=== PATIENT | male | born 1945 | race Caucasian/White ===

== ENCOUNTER 2017-05-11 08:03 | Inpatient (IN) ==
[2017-05-11] MEDS ORDERED: Ondansetron 4 MG/2 ML VIAL IVP ONE (08:11)
[2017-05-11] MEDS ORDERED: *HR* HYDROmorphone (PF) 1 MG/ML SYRINGE IVP ONE (08:11)
--- NOTE | 2017-05-11 08:16 | Emergency Department Note ---
Disposition Clinical Impression: Ureterolithiasis Disposition: Admitted As Inpatient Condition: Fair Time of Disposition: 08:36 Abdominal Pain HPI - General Chief Complaint: ED Abdominal Pain Stated Complaint: kidney stone Time Seen by Provider: 05/11/17 08:06 Source: patient, family - History of Present Illness HPI Narrative: Patient is a 72-year-old male with a past medical history of coronary artery disease on Plavix for stents, hypertension, diabetes, COPD who presents to the ED with chief complaint right flank pain. Patient states he was seen here last night and diagnosed with a 2 mm stone. Pt was d/c home with percocet, flomax and nausea medication. Pt returns here this morning because pain is uncontrolled with Percocet. He denies a prior history of nephrolithiasis but reports his mother had a history He does report he is having difficulty voiding , "I'm only dribbling urine" He denies fevers, vomiting, diarrhea, hematuria, dysuria, chest pain, shortness of breath, motor/sensory deficit, saddle anesthesia, weakness. Does report he is very nausea. Pt Subjective Complaint: flank pain Onset (ago): day(s) Consistency: constant Location: R flank Pain Severity: severe Pain Scale: 9 Quality: sharp, dull Radiation: other (Right groin) Improves with: nothing Worsens with: nothing Context: other (Recently diagnosed with a kidney stone yesterday.) Associated symptoms: Reports: denies other symptoms, nausea. Denies: vomiting, diarrhea, fever, chills, constipation, dysuria, hematemesis, hematochezia, melena, hematuria, anorexia, syncope Treatments prior to arrival: none - Related Data Previous Rx's Medication Instructions Recorded Ciprofloxacin [Cipro] 500 mg PO BID #14 tablet 05/10/17 Ondansetron ODT [Zofran ODT] 4 mg SL Q6HR PRN #14 tab.rapdis 05/10/17 Tamsulosin HCl [Flomax] 0.4 mg PO DAILY #7 cap.er.24h 05/10/17 Allergies Allergy/AdvReac Type Severity Reaction Status Date / Time No Known Allergies Allergy Verified 05/11/17 08:04 All systems ED: reviewed and negative except as stated. Review of Systems: As Per HPI Constitutional: Denies: fever, chills, weakness Cardiovascular: Denies: chest pain, palpitations, dyspnea on exertion, orthopnea , syncope Respiratory: Denies: cough, dyspnea, wheezes Gastrointestinal: Reports: nausea. Denies: abdominal pain, vomiting, diarrhea, constipation, hematemesis, melena, hematochezia Genitourinary: Denies: urgency, dysuria, frequency, hematuria, discharge, testicular pain Musculoskeletal: Reports: back pain (Right flank pain) Integumentary: Denies: rash Neurological: Denies: weakness, numbness, paresthesias Abdominal Pain PMH - Past Medical History Medical history: Reports: coronary artery disease, CVA, diabetes, hypertension, myocardial infarction Male Surgical History: Reports: angioplasty/stent, appendectomy, orthopedic, other, other - Social History Smoking status: Current every day smoker Alcohol use: Reports: none Drug use: Reports: none Physical Exam - General Limitations: no limitations General appearance: alert, in no apparent distress - Head Head exam: atraumatic, normocephalic, normal inspection - Eye Eye exam: Present: normal appearance - ENT ENT exam: mucous membranes moist - Neck Neck exam: Present: normal inspection, full ROM - Chest Chest inspection: Present: symmetric chest wall rise - Respiratory Respiratory exam: Present: normal lung sounds bilaterally - Cardiovascular Cardiovascular exam: Present: regular rate, normal rhythm, normal heart sounds - Abdominal Exam Abdominal exam: Present: soft, Non-Tender, normal bowel sounds. Absent: rigidity, hyperactive bowel sounds, hypoactive bowel sounds, organomegaly, trauma, incision, psoas sign, obturator sign, Oakes's sign, Rovsing's sign, tenderness at McBurney's Point, ascites, mass - Extremities Exam Extremities exam: Present: normal inspection - Expanded Lower Extremity Exam Gait: observed and normal - Back Exam Back exam: Present: normal inspection, full ROM, CVA tenderness (R). Absent: CVA tenderness (L), muscle spasm, paraspinal tenderness, vertebral tenderness, rashes - Neurological Exam Neurological exam: Present: alert, oriented X3 - Psychiatric Psychiatric exam: Present: normal affect, normal mood - Skin Skin exam: Present: warm, dry, intact, normal color. Absent: rash, cyanosis, diaphoresis Course Course Narrative: Patient is a 72-year-old male with a past medical history of coronary artery disease on Plavix for stents, hypertension, diabetes, COPD who presents to the ED with chief complaint right flank pain. Patient states he was seen here last night and diagnosed with a 2 mm stone. Pt was d/c home with percocet, flomax and nausea medication. Pt returns here this morning because pain is uncontrolled with Percocet. He denies a prior history of nephrolithiasis but reports his mother had a history He does report he is having difficulty voiding , "I'm only dribbling urine" He denies fevers, vomiting, diarrhea, hematuria, dysuria, chest pain, shortness of breath, motor/sensory deficit, saddle anesthesia, weakness. Does report he is very nausea. Reviewed previous labs and CT Previous labs showed the BMP 18.1. Bump in kidney function. Creatinine was 1.34. UA showed large blood. Reviewed CT which shows 2 mm stone distal right ureter at the right UVJ. Mild prominence of the right ureter and right pelviectasis. Mild perinephric stranding and inflammatory change surrounding the right ureter. Diverticulosis. No evidence of acute diverticulitis. Compression deformities T12. Plan to repeat UA and basic labs. We will consult urology for possible admission and pain control. Repeat WBC 19.7 Kidney function has continued to rise. Creatinine 1.41 UA still pending. Patient reports that pain is now controlled with Dilaudid, morphine and Toradol. UA shows large blood and ketones. Urologist paged. Discussed case with the urologist Dr. Wayne who accepted patient. Dr. Wayne discussed with me on the phone that he will flood patient with fluids and pain medication to see if he can pass the stone without further intervention. I did discuss this with patient. Patient is very happy with this treatment plan. Vital Signs Temperature 97.8 F 05/11/17 08:04 Pulse Rate 75 05/11/17 08:04 Respiratory Rate 18 05/11/17 08:04 Blood Pressure 177/95 05/11/17 08:04 O2 Sat by Pulse Oximetry 96 05/11/17 08:04 Temperature 97.8 F 05/11/17 08:04 Pulse Rate 82 05/11/17 09:30 Respiratory Rate 16 05/11/17 09:30 Blood Pressure 142/90 05/11/17 09:30 O2 Sat by Pulse Oximetry 95 05/11/17 09:30 Oxygen Delivery Oxygen Delivery Nasal Cannula Abdominal Pain - Medical Records Medical records reviewed: Yes I reviewed the patient's medical records. - Lab Data Lab results reviewed: Yes I reviewed the patient's lab results. Result diagrams: 05/11/17 08:19 05/11/17 08:19 Lab Results 05/11/17 05/11/17 05/11/17 Range/Units 08:19 08:19 09:22 WBC 19.7 H (4.3-11.1) K/mcL RBC 3.78 L (4.19-5.50) M/mcL Hgb 11.6 L (12.9-16.9) g/dL Hct 36.1 L (37.5-50.1) % MCV 95.5 (83.0-100.0) fL MCH 30.7 (28.0-33.3) pg MCHC 32.1 (31.6-35.5) g/dL RDW 14.4 (11.5-14.5) % Plt Count 289 (140-400) K/mcL MPV 8.5 L (9.4-12.4) fL Immature Gran % 0.6 (0-4) % Seg Neutrophils % 58.6 % Lymphocytes % 34.0 % Monocytes % 5.9 % Eosinophils % 0.7 % Basophils % 0.2 % Neutrophils # 11.6 H (1.6-8.9) K/mcL Lymphocytes # 6.7 H (0.6-4.6) K/mcL Monocytes # 1.2 (0.0-1.3) K/mcL Eosinophils # 0.1 (0.0-0.6) K/mcL Basophils # 0.0 (0.0-0.2) K/mcL Immature Plt Fraction 1.7 (1.1-6.1) % Sodium 137 (136-145) mEq/L Potassium 4.2 (3.5-4.5) mEq/L Chloride 101 (98-109) mEq/L Carbon Dioxide 25 (19-29) mEq/L BUN 23 (8-26) mg/dL Creatinine 1.41 H (0.72-1.25) mg/dL Est GFR ( Amer) > 60 (> 60) Est GFR (Non-Af Amer) 50 L (> 60) BUN/Creatinine Ratio 16 (6-26) Glucose 238 H (70-99) mg/dL Calculated Osmolality 295 (280-300) Calcium 9.0 (8.6-10.8) mg/dL Total Bilirubin < 0.3 (0.2-1.2) mg/dL AST 15 (5-34) Units/L ALT 16 (0-55) Units/L Alkaline Phosphatase 61 (38-126) Units/L Serum Total Protein 7.4 (6.0-8.3) g/dL Albumin 3.9 (3.5-5.0) g/dL Globulin 3.5 (2.4-3.5) g/dL Albumin/Globulin Ratio 1.1 (1.1-2.2) Urine Color Yellow (Yellow) Urine Clarity Clear (Clear) Urine pH 5.5 (5.0-8.0) pH Units Ur Specific [place] 1.028 H (1.010-1.025) Urine Protein Trace (Neg-Trace) mg/dL Urine Glucose (UA) >=1000 H (Normal) mg/dL Urine Ketones Trace H (Negative) mg/dL Urine Blood Large H (Negative) Urine Nitrite Negative (Negative) Urine Bilirubin Negative (Negative) Urine Urobilinogen Normal (Normal) mg/dL Ur Leukocyte Esterase Negative (Negative) Urine Microscopic RBC 50-100 H (0-3) per hpf Urine Microscopic WBC 0-3 (0-3) per hpf Ur Squamous Epith Cells Few (None-Few) per lpf Urine Bacteria Few (None-Few) per hpf Ur Culture Indicated? NO (NO) - Radiology Data Radiology results reviewed: Yes I reviewed the patient's radiology results. Attestation Statement - Attestation Attestation: For this encounter, I have reviewed the PRECISION MACHINIST or PA documentation, treatment plan, and medical decision making; and I have had face to face time with this patient. [id number] time provided Patient continues to have symptoms of renal colic. He was recently seen for similar symptoms and diagnosed with a proximal kidney stone. He appears uncomfortable on exam. We will request urologic consultation versus admission for intractable symptoms and failed outpatient therapy
[2017-05-11 08:25] LABS: Basophils % 0.2 %; Eosinophils # 0.1 K/mcL (0.0-0.6); Eosinophils % 0.7 %; Hematocrit 36.1 % (37.5-50.1); Hemoglobin 11.6 g/dL (12.9-16.9); Immature Granulocytes % 0.6 % (0-4); Immature Platelets 1.7 % (1.1-6.1); Lymphocytes # 6.7 K/mcL (0.6-4.6); Mean Corpuscular HGB Conc 32.1 g/dL (31.6-35.5); Mean Corpuscular Hemoglobin 30.7 pg (28.0-33.3); Mean Corpuscular Volume 95.5 fL (83.0-100.0); Mean Platelet Volume 8.5 fL (9.4-12.4); Monocytes # 1.2 K/mcL (0.0-1.3); Monocytes % 5.9 %; Neutrophils # 11.6 K/mcL (1.6-8.9); Platelet Count 289 K/mcL (140-400); Red Blood Count 3.78 M/mcL (4.19-5.50); Red Cell Distribution Width 14.4 % (11.5-14.5); Segmented Neutrophils % 58.6 %
[2017-05-11] MEDS ORDERED: *HR* Morphine 2 MG/ML SYRINGE IVP ONE (08:38)
[2017-05-11] MEDS ORDERED: Ketorolac 15 MG/ML VIAL IVP ONE (08:39)
[2017-05-11 08:50] LABS: Alanine Aminotransferase 16 Units/L (0-55); Albumin 3.9 g/dL (3.5-5.0); Albumin/Globulin Ratio 1.1 (1.1-2.2); Alkaline Phosphatase 61 Units/L (38-126); Aspartate Amino Transferase 15 Units/L (5-34); BUN/Creatinine Ratio 16 (6-26); Blood Urea Nitrogen 23 mg/dL (8-26); Carbon Dioxide 25 mEq/L (19-29); Chloride 101 mEq/L (98-109); Globulin 3.5 g/dL (2.4-3.5); Glucose 238 mg/dL (70-99); Osmolality,Calculated 295 (280-300); Potassium 4.2 mEq/L (3.5-4.5); Sodium 137 mEq/L (136-145); Total Protein 7.4 g/dL (6.0-8.3); eGFR For African Americans > 60 (> 60); eGFR For Non-African Americans 50 (> 60)
[2017-05-11 08:51] LABS: Bilirubin,Total < 0.3 mg/dL (0.2-1.2)
[2017-05-11 09:33] LABS: Bilirubin,Urine Negative (Negative); Blood,Urine Large (Negative); Clarity,Urine Clear (Clear); Color,Urine Yellow (Yellow); Glucose,Urine (UA) >=1000 mg/dL (Normal); Ketones,Urine Trace mg/dL (Negative); PH,Urine 5.5 pH Units (5.0-8.0); Protein,Urine Trace mg/dL (Neg-Trace); Specific Gravity,Urine 1.028 (1.010-1.025); Urobilinogen,Urine Normal (Normal)
[2017-05-11 09:34] LABS: Leukocyte Esterase,Urine Negative (Negative); Nitrite,Urine Negative (Negative)
[2017-05-11 09:44] LABS: Bacteria,Urine Few per hpf (None-Few); RBC,Urine 50-100 per hpf (0-3); Squamous Epithelial Cell,Urine Few per lpf (None-Few); WBC,Urine 0-3 per hpf (0-3)
[2017-05-11] MEDS ORDERED: 0.9 % Sodium Chloride 1,000 ML IVC ONE (09:44)
[2017-05-11] MEDS ORDERED: *HR* Belladonna Alkaloids/Opium 30 MG RECTAL SUPPOSITORY RC PRN ×2 (10:09→22:35)
[2017-05-11] MEDS ORDERED: *HR* Morphine 2 MG/ML SYRINGE IVP PRN ×2 (10:09→22:35)
[2017-05-11] MEDS ORDERED: Naloxone 0.4 MG/ML INJ IVP PRN ×2 (10:09→22:35)
[2017-05-11] MEDS ORDERED: *HR* OxyCODONE Immed Rel 5 MG TABLET PO PRN ×2 (10:09→22:35)
[2017-05-11] MEDS ORDERED: Hyoscyamine SL 0.125 MG TAB.SUBL SL PRN (10:09)
[2017-05-11] MEDS ORDERED: *HR* Promethazine 25 MG/ML VIAL IVP PRN ×2 (10:09→22:35)
[2017-05-11] MEDS ORDERED: Ondansetron 4 MG/2 ML VIAL IVP PRN ×2 (10:09→22:35)
[2017-05-11] MEDS ORDERED: *HR* Dextrose 50 % in Water (Syg) 50 ML SYRINGE IVP PRN ×2 (10:13→22:35)
[2017-05-11] MEDS ORDERED: D5% in Water 1,000 ML IVC PRN ×2 (10:13→22:35)
[2017-05-11] MEDS ORDERED: Dextrose Gel 15 GM PO PRN ×4 (10:13→22:35)
[2017-05-11] MEDS: *HR* HYDROmorphone (PF) 1 MG/ML SYRINGE IVP PRN ×2 (10:47→15:57)
[2017-05-11] MEDS: Insulin LISPRO 300 UNITS/3 ML VIAL SQ SCH ×2 (12:00→16:24)
--- NOTE | 2017-05-11 13:37 | Urology History & Physical ---
Date of Encounter: 05/11/17 Time of Encounter: 13:34 Assessment and Plan (1) Ureteral stone with hydronephrosis Current Visit: Yes Status: Acute Patient was very comfortable on my evaluation today. No need for urgent surgery. We will give patient the next 24 hours to attempt trial of passage. If unable to pass the stone today or overnight will likely take to the operating room for a stone extraction tomorrow. History of Present Illness Chief complaint: flank pain HPI: Mr. Leon is a 72 year old male pt admitted to the urology service after 2nd ER visit for a 2 mm UVJ stone. States the pain was "terrible "currently pain is well-controlled with a pain level of 1. Describes no fever. No personal history of kidney stones. Positive family history of kidney stones in his mother. Past Med Surg Social Fam HX - Past Medical History Medical history: coronary artery disease, CVA, diabetes, hypertension, myocardial infarction - Social History Smoking Status: Current every day smoker Smokeless Tobacco Status: No Alcohol use: none Drug use: none Medications and Allergies Tamsulosin HCl [Flomax] 0.4 mg PO DAILY #7 cap.er.24h 05/10/17 [Rx] Cholecalciferol (Vitamin D3) [Vitamin D] 1,000 unit PO DAILY 05/11/17 [History] Clopidogrel [Plavix] 75 mg PO DAILY 05/11/17 [History] Gabapentin [Neurontin] 100 mg PO HS 05/11/17 [History] GlipiZIDE [Glipizide ER] 10 mg PO BID 05/11/17 [History] Krill/Om-3/Dha/Epa/Phospho/Ast [Krill Oil 1,000 mg Softgel] 1 cap PO DAILY 05/11 [History] Meclizine [Antivert] 12.5 mg PO TID PRN 05/11/17 [History] Metformin HCl [Glucophage] 1,000 mg PO BID 05/11/17 [History] Metoprolol XL (24 HR) Succ [Toprol XL] 12.5 mg PO BID 05/11/17 [History] OxyCODONE/APAP 10/325 [Percocet 10/325 MG] 1 tab PO QID PRN 05/11/17 [History] Pantoprazole Sodium [Protonix] 40 mg PO DAILY 05/11/17 [History] Pioglitazone HCl [Pioglitazone HCl] 30 mg PO DAILY 05/11/17 [History] 3 Allergy/AdvReac Type Severity Reaction Status Date / Time No Known Allergies Allergy Verified 05/11/17 08:04 Review of Systems - Constitutional no chills, no fever(s), no malaise - EENT Nose, mouth and throat: no dizziness - Cardiovascular no chest pain - Respiratory no cough - Gastrointestinal abdominal pain, no nausea - Genitourinary difficulty urinating, flank pain - Musculoskeletal back pain - Integumentary no erythema - Neurological no confusion - Psychiatric no anxiety - Hematologic/Lymphatic no easy bleeding Exam Initial Vital Signs Temp Pulse Resp BP Pulse Ox 97.8 F 75 18 177/95 96 05/11/17 08:04 05/11/17 08:04 05/11/17 08:04 05/11/17 08:04 05/11/17 08:04 - General physical appearance Present: well developed, no distress - Eyes Present: PERRL - ENT Present: normal nares - Neck Present: no masses - Respiratory Present: normal respiratory effort - Cardiovascular Cardiovascular exam IM: RRR - Integumentary Present: no rash. Absent: no growths, no abnormal pigmentation - Neurologic Present: normal coordination. Absent: disoriented, confused Urology Results - Labs 05/11/17 08:19 05/11/17 08:19 Abnormal lab results WBC 19.7 K/mcL (4.3-11.1) H 05/11/17 08:19 RBC 3.78 M/mcL (4.19-5.50) L 05/11/17 08:19 Hgb 11.6 g/dL (12.9-16.9) L 05/11/17 08:19 Hct 36.1 % (37.5-50.1) L 05/11/17 08:19 MPV 8.5 fL (9.4-12.4) L 05/11/17 08:19 Neutrophils # 11.6 K/mcL (1.6-8.9) H 05/11/17 08:19 Lymphocytes # 6.7 K/mcL (0.6-4.6) H 05/11/17 08:19 Creatinine 1.41 mg/dL (0.72-1.25) H 05/11/17 08:19 Est GFR (Non-Af Amer) 50 (> 60) L 05/11/17 08:19 Glucose 238 mg/dL (70-99) H 05/11/17 08:19 POC Glucose 242 (58-89) H 05/11/17 11:39 Ur Specific [place] 1.028 (1.010-1.025) H 05/11/17 09:22 Urine Glucose (UA) >=1000 mg/dL (Normal) H 05/11/17 09:22 Urine Ketones Trace mg/dL (Negative) H 05/11/17 09:22 Urine Blood Large (Negative) H 05/11/17 09:22 Urine Microscopic RBC 50-100 per hpf (0-3) H 05/11/17 09:22 All other labs normal.
[2017-05-11] MEDS ORDERED: 0.9 % Sodium Chloride 1,000 ML IVC SCH (13:45)
[2017-05-11] MEDS ORDERED: Acetaminophen IV 1,000 MG/100 ML INFUS..BTL IVPB ONE (19:47)
[2017-05-11] MEDS ORDERED: Piperacillin/Tazobactam 3.375 GM in D5% in Water (Mini-Bag+) 100 ML IVPB ONE (20:00)
[2017-05-11] MEDS ORDERED: *HR* Etomidate 40 MG/20 ML VIAL IVP ONE (20:39)
[2017-05-11] MEDS ORDERED: Lidocaine -MPF 2% 2 ML VIAL ONE (20:40)
[2017-05-11] MEDS ORDERED: *HR* FentaNYL (PF) 100 MCG/2 ML VIAL ONE ×2 (20:41→22:11)
[2017-05-11] MEDS ORDERED: Albuterol 2.5 MG/3 ML NEBULIZER ONE (20:45)
[2017-05-11] MEDS ORDERED: Albuterol 2.5 MG/3 ML NEBULIZER IH ONE (20:45)
[2017-05-11] MEDS ORDERED: *HR* Succinylcholine 200 MG/10 ML VIAL IVP ONE (20:56)
[2017-05-11] MEDS ORDERED: *HR* Phenylephrine 10 MG/ML VIAL ONE (20:57)
--- NOTE | 2017-05-11 21:07 | Event Note ---
Date of Encounter: 05/11/17 Time of Encounter: 21:05 called by nursing staff. MUSE score of 6. O2 sats dropped to 87%. respiration rate 26. tachycardic to 120. BP stable. fever 101.2. gave patient dose of zosyn (received rocephin this AM). one gram acetaminophen. proceed to OR tonight for stent placement. will attempt to extract stone bc 2 mm UVJ as this unlikely to result in increased manipulation of this ureter.
--- NOTE | 2017-05-11 21:09 | Operative Note ---
Date of procedure: 05/11/17 Pre-op diagnosis: 2 mm distal right ureteral stone Post-op diagnosis: same Procedure: right ureteroscopic stone extraction right retrograde pyelogram right JJ stent. Anesthesia: GETA Surgeon: Stevo Wayne Estimated blood loss (cc): 0 Specimen: stone Condition: stable Disposition: PACU Procedure in Detail: PROCEDURE IN DETAIL: Patient was taken back to the operating room, positioned supine on the operating table. Anesthesia was applied without complication. They were moved into dorsal lithotomy. Careful attention was maintained to cushion all pressure points for patient's safety. They were prepped and draped in sterile fashion. Time-out was performed with the proper patient and procedure. A 17-Malian rigid cystoscope was inserted into the bladder without difficulty. Systematic examination of bladder revealed no abnormalities. The ureteral orifice was cannulated using a 5-Malian ureteral Catheter and a zip wire was passed. A semi-rigid ureteroscope was carefully inserted into the bladder and guided into the ureteral oriface. Although the ureter was quite edematous I was able to access the ureteral vesicle junction, identified the stone, basket extract with minimal manipulation. All stone in the distal ureter was removed. A 4.8 x 26 ureteral stent was placed over the zip wire under fluoroscopy without complication.
--- NOTE | 2017-05-11 21:11 | Anesthesia Evaluation PreOp ---
Date of Encounter: 05/11/17 Time of Encounter: 21:09 - Past History Planned Operation: Right ureteral stent Cardiac History: PR (multiple PR's - none within the past year), HTN, Hyperlipidemia, Arrhythmia (hx VT), Cardiac Stent (3-4 stents; none within the past one year) Pulmonary History: Smoker, COPD, KIMBERLY Dx (possible) BANQUET LEAD History: Other (hx brain aneurysms; two coiled (per patient, none unrepaired that he knows of)) Other Medical History: Renal (renal stone; anabelle), Diabetes Type II Anesthesia History: No Prior Anesthetic Complications Alcohol Use: none Drug use: none Medications and Allergies Tamsulosin HCl [Flomax] 0.4 mg PO DAILY #7 cap.er.24h 05/10/17 [Rx] Cholecalciferol (Vitamin D3) [Vitamin D] 1,000 unit PO DAILY 05/11/17 [History] Clopidogrel [Plavix] 75 mg PO DAILY 05/11/17 [History] Gabapentin [Neurontin] 100 mg PO HS 05/11/17 [History] GlipiZIDE [Glipizide ER] 10 mg PO BID 05/11/17 [History] Krill/Om-3/Dha/Epa/Phospho/Ast [Krill Oil 1,000 mg Softgel] 1 cap PO DAILY 05/11 [History] Meclizine [Antivert] 12.5 mg PO TID PRN 05/11/17 [History] Metformin HCl [Glucophage] 1,000 mg PO BID 05/11/17 [History] Metoprolol XL (24 HR) Succ [Toprol XL] 12.5 mg PO BID 05/11/17 [History] OxyCODONE/APAP 10/325 [Percocet 10/325 MG] 1 tab PO QID PRN 05/11/17 [History] Pantoprazole Sodium [Protonix] 40 mg PO DAILY 05/11/17 [History] Pioglitazone HCl [Pioglitazone HCl] 30 mg PO DAILY 05/11/17 [History] 3 Allergy/AdvReac Type Severity Reaction Status Date / Time No Known Allergies Allergy Verified 05/11/17 08:04 - Meds/Allergy Pre-op Review Medications Reviewed: Yes Allergies Reviewed: Yes Beta Blockers on Current Med List: Yes (holding due to potential for septic shock) Anesthesia Results - Labs 05/11/17 08:19 05/11/17 08:19 - Imaging EKG: report reviewed, image reviewed (ST) Anesthesia Exam Last Vital Signs Temp 100.0 F H 05/11/17 20:30 Pulse 115 05/11/17 20:30 Resp 18 05/11/17 20:30 BP 135/79 05/11/17 20:30 Pulse Ox 93 05/11/17 20:30 Weight: 81 kg NPO (# of Hours): > 8 hrs - HEENT Pupil (Motor): Pupils equal, EOMI Mallampati: IV Teeth: Missing, Poor dentition - BANQUET LEAD LOC: Oriented BANQUET LEAD Motor: Normal RUE, Normal LUE, Normal RLE, Normal LLE, Normal Face - Cardiac Rhythm: Regular Murmur: None - Pulmonary Breath Sounds: bilateral Clear Respiratory Effort: Symmetrical Anesthesia Assess/Plan ASA Score: 4, E Modified Dunia Scale for Level of Consciousness: Cooperative, oriented, and tranquil Anesthetic Plan: General, Precautions (C-MAC) Monitoring Plan: Standard Monitors Recovery Plan: PACU
[2017-05-11] MEDS ORDERED: Hydrocortisone Sodium Succ 100 MG/2 ML VIAL ONE (21:15)
[2017-05-11] MEDS ORDERED: EPHEDrine 50 MG/ML VIAL ONE (21:16)
--- NOTE | 2017-05-11 21:46 | Internal Med History&Physical ---
Date of Encounter: 05/11/17 Time of Encounter: 21:46 Internal Medicine - H&P: HPI History of present illness: Mr. Leon is a 72 year old male Past Med Surg Social Fam HX - Past Medical History Medical history: arthritis, coronary artery disease, CVA, diabetes, hypertension , myocardial infarction, other - Past Surgical History Surgical History: appendectomy - Social History Smoking Status: Current every day smoker Packs per day: 1 pack Smokeless Tobacco Status: No Alcohol use: none Drug use: none Internal Medicine - H&P: Meds Tamsulosin HCl [Flomax] 0.4 mg PO DAILY #7 cap.er.24h 05/10/17 [Rx] Cholecalciferol (Vitamin D3) [Vitamin D] 1,000 unit PO DAILY 05/11/17 [History] Clopidogrel [Plavix] 75 mg PO DAILY 05/11/17 [History] Gabapentin [Neurontin] 100 mg PO HS 05/11/17 [History] GlipiZIDE [Glipizide ER] 10 mg PO BID 05/11/17 [History] Krill/Om-3/Dha/Epa/Phospho/Ast [Krill Oil 1,000 mg Softgel] 1 cap PO DAILY 05/11 [History] Meclizine [Antivert] 12.5 mg PO TID PRN 05/11/17 [History] Metformin HCl [Glucophage] 1,000 mg PO BID 05/11/17 [History] Metoprolol XL (24 HR) Succ [Toprol XL] 12.5 mg PO BID 05/11/17 [History] OxyCODONE/APAP 10/325 [Percocet 10/325 MG] 1 tab PO QID PRN 05/11/17 [History] Pantoprazole Sodium [Protonix] 40 mg PO DAILY 05/11/17 [History] Pioglitazone HCl [Pioglitazone HCl] 30 mg PO DAILY 05/11/17 [History] 3 Allergy/AdvReac Type Severity Reaction Status Date / Time No Known Allergies Allergy Verified 05/11/17 08:04 All Systems PM: A 10-system review of systems was performed and is negative for pertinent findings except as documented above in the HPI. - Constitutional Vitals: Temp Pulse Resp BP Pulse Ox 100.0 F H 115 18 135/79 93 05/11/17 20:30 05/11/17 20:30 05/11/17 20:30 05/11/17 20:30 05/11/17 20:30 Internal Med - H&P Results - Labs CBC & Chem 7: 05/11/17 08:19 05/11/17 08:19
[2017-05-11] MEDS ORDERED: Ondansetron 4 MG/2 ML VIAL ONE (21:58)
[2017-05-11] MEDS ORDERED: *HR* Midazolam HCl 2 MG/2 ML VIAL ONE (21:58)
--- NOTE | 2017-05-11 22:32 | Anesthesia Evaluation Post Op ---
Date of Encounter: 05/11/17 Time of Encounter: 22:29 - Vital Signs Vital Signs: HR 80 SHIRAZ 89/67 O2 100% T 97.1 - Lungs Lungs: Clear Ascult./Percussion - Airway Airway: Intubated - Cardiovascular Regular Rate, Baseline Rhythm - Mental Status Mental Status: Sedated - Nausea Vomiting Nausea Vomiting: Not Present - Hydration Hydration: NPO - Discharge PostOp Status: Transfer Patient to floor ([facility]. Altered mental status on floor (patient was difficult to arouse at one point). Decision made to keep intubated and placed in ICU for additional monitoring. Patient is at risk for septic shock/urosepsis.)
[2017-05-11] MEDS ORDERED: *HR* HYDROmorphone (PF) 1 MG/ML SYRINGE IVP PRN (22:35)
[2017-05-11] MEDS ORDERED: 0.9 % Sodium Chloride 1,000 ML ONE (22:37)
[2017-05-11] MEDS ORDERED: Lacri-Lube 3.5 GM TUBE BOTH EYES PRN (22:40)
--- NOTE | 2017-05-11 22:56 | Internal Medicine Consult Note ---
<Bc Harikns - Last Filed: 05/11/17 23:11> Date of Encounter: 05/11/17 Time of Encounter: 22:51 - Assessment and Plan (1) Sepsis Current Visit: Yes Status: Acute Assessment and plan: Secondary to UTI and right ureterolithiasis. Patient met sepsis criteria during his stay due to tachycardia, tachypnea, fever, source of infection. Kidney stone has been removed, stent has been placed in the right ureter. Patient has been given Rocephin and Zosyn. Vitals have since improved. Heart rate is down 80s, blood pressure 80s to 90s systolic over 60s. He remains elevated after OR stone removal and stent placement. Immunology/critical care has been consulted for urosepsis and ventilator management Continue to wean ventilator settings as tolerated Continue to monitor blood pressure Continue normal saline at 125 mL per hour, bolus as needed Continue Rocephin and Zosyn Continue Tylenol IV as needed for fever Qualifiers: Sepsis type: sepsis due to unspecified organism Qualified Code(s): A41.9 - Sepsis, unspecified organism (2) UTI (urinary tract infection) Current Visit: Yes Status: Acute Assessment and plan: See above Qualifiers: Urinary tract infection type: site unspecified Hematuria presence: with hematuria Qualified Code(s): N39.0 - Urinary tract infection, site not specified; R31.9 - Hematuria, unspecified (3) Hypotension Current Visit: Yes Status: Acute Assessment and plan: Blood pressure currently stable. Receiving normal saline at 125 mL per hour. See above for management. Qualifiers: Hypotension type: unspecified hypotension type Qualified Code(s): I95.9 - Hypotension, unspecified (4) Ureterolithiasis Current Visit: Yes Status: Acute Assessment and plan: 05/10/17 CT/CT abd pelvis wo no iv no oral IMPRESSION: 2 mm stone distal right ureter at the right UVJ. Mild prominence of the right ureter and right pelviectasis. Mild perinephric stranding and inflammatory change surrounding the right ureter. See above for management (5) DVT prophylaxis Current Visit: Yes Status: Acute Assessment and plan: Heparin 5000 units subcutaneous every 12 hours Internal Medicine - CN: HPI - Data of Consult Patient: new to practice Consult date: 05/11/17 Requesting Physician: Stevo Wayne - Consult Narrative Reason for consult: urosepsis, intubated History of present illness: Mr. Leon is a 72 year old male with past medical history of CAD, previous CVA, previous [place], hypertension, diabetes, COPD. He originally presented to the ED on 05/11/2017 with complaints of right flank pain. He had a recent diagnosis of a 2 mm stone. Previously, the patient was sent home with Percocet, Flomax, antibiotics. However, he returned to the ER due to worsening pain, difficulty voiding urine. Patient was admitted to urology service for further care. Patient's white blood cell count was 19.7, creatinine was 1.41, which is above the patient's usual baseline around 0.9. Urinalysis was positive for large amounts of blood but was nitrite and leukocyte esterase negative at that time. During the patient's stay, he became febrile, tachycardic, tachypneic. There is concern that the patient could be developing urosepsis. The patient was taken to the OR and had stent placement and removal of right UVJ stone by Dr. Wayne. He was transferred to ICU after surgery for further care and monitoring. Patient remains intubated after surgery. Heart rate in 80s, blood pressure 80s over 60s on arrival to the ICU. Past Med Surg Social Fam HX - Past Medical History Medical history: arthritis, coronary artery disease, CVA, diabetes, hypertension , myocardial infarction, other - Past Surgical History Surgical History: appendectomy - Social History Smoking Status: Current every day smoker Packs per day: 1 pack Smokeless Tobacco Status: No Alcohol use: none Drug use: none ROS unobtainable: due to endotracheal tube Internal Medicine - CN: Meds Tamsulosin HCl [Flomax] 0.4 mg PO DAILY #7 cap.er.24h 05/10/17 [Rx] Cholecalciferol (Vitamin D3) [Vitamin D] 1,000 unit PO DAILY 05/11/17 [History] Clopidogrel [Plavix] 75 mg PO DAILY 05/11/17 [History] Gabapentin [Neurontin] 100 mg PO HS 05/11/17 [History] GlipiZIDE [Glipizide ER] 10 mg PO BID 05/11/17 [History] Krill/Om-3/Dha/Epa/Phospho/Ast [Krill Oil 1,000 mg Softgel] 1 cap PO DAILY 05/11 [History] Meclizine [Antivert] 12.5 mg PO TID PRN 05/11/17 [History] Metformin HCl [Glucophage] 1,000 mg PO BID 05/11/17 [History] Metoprolol XL (24 HR) Succ [Toprol XL] 12.5 mg PO BID 05/11/17 [History] OxyCODONE/APAP 10/325 [Percocet 10/325 MG] 1 tab PO QID PRN 05/11/17 [History] Pantoprazole Sodium [Protonix] 40 mg PO DAILY 05/11/17 [History] Pioglitazone HCl [Pioglitazone HCl] 30 mg PO DAILY 05/11/17 [History] 3 Allergy/AdvReac Type Severity Reaction Status Date / Time No Known Allergies Allergy Verified 05/11/17 08:04 Internal Medicine - CN: Exam - Constitutional Vitals: Temp Pulse Resp BP Pulse Ox 100.0 F H 115 19 135/79 100 05/11/17 20:30 05/11/17 20:30 05/11/17 22:19 05/11/17 20:30 05/11/17 22:19 Exam: Intubated and sedated - Head Head exam: Present: atraumatic, normal inspection - Eye Eye exam: Present: PERRL, conjuntiva pink, sclera anicteric - ENT ENT exam: Present: mucous membranes moist Additional comments: ET tube present - Neck Neck exam general surgery: Present: normal inspection, supple, trachea midline - Respiratory Respiratory exam: Absent: rales, rhonchi, wheezes Additional comments: Patient currently intubated. No wheezes, rales, rhonchi on exam. - Cardiovascular Cardiovascular exam IM: Present: RRR, +S1, +S2. Absent: diastolic murmur, systolic murmur - GI/Abdominal GI/Abdominal exam IM: Present: soft. Absent: distended, mass, tenderness, no peritoneal signs - Extremities Exam Extremities exam IM: Present: normal inspection, warm, radial pulses palpable and symmetrical. Absent: cyanotic, pedal edema - Neurological Exam Additional comments: Unable to fully assess due to being intubated and sedated. Pupils equal and reactive. When taken off sedation, purposeful movement in all extremities. - Skin Skin exam IM: Present: dry, intact. Absent: erythema, rash Internal Medicine - CN: Reslt - Labs CBC & Chem 7: 05/11/17 08:19 05/11/17 08:19 Consult Discharge Plan - Plan Referrals: Juventino Lizama DO [Primary Care Provider] - <Olga Lidia Crouch - Last Filed: 05/12/17 02:54> Date of Encounter: 05/12/17 Internal Medicine - CN: HPI - Data of Consult Requesting Physician: Stevo Wayne - Consult Narrative History of present illness: Mr. Leon is a 72 year old male Internal Medicine - CN: Exam - Constitutional Vitals: Temp Pulse Resp BP Pulse Ox 97.5 F L 70 14 88/57 97 05/12/17 00:00 05/12/17 02:00 05/12/17 02:38 05/12/17 02:38 05/12/17 02:38 Internal Medicine - CN: Reslt - Labs CBC & Chem 7: 05/11/17 08:19 05/11/17 08:19 - Impressions Impressions Fluoroscopy 05/11/17 21:43 IMPRESSION: Intraprocedural fluoroscopic spot images as above. See separate procedure report for more information. D/ / Miguel Butler MD / Miguel Butler MD Interpreting Provider: Miguel Butler MD Chest X-Ray 05/11/17 22:47 IMPRESSION: 1. Endotracheal tube terminates 5.2 cm above the zamzam. 2. Enteric tube tip and side-port in the gastric body below the gastroesophageal junction. 3. Low lung volumes with right greater left bibasilar atelectasis. D/ / Miguel Butler MD / Miguel Butler MD Interpreting Provider: Miguel Butler MD - Attending Attestation I have seen and examined pt independently. I have discussed the management plan with Resident Dr. Harkins. I have reviewed his note and agree with the documentation. Pt was admitted for ureter stone and UTI. Had stone removal. Difficult extubation after surgery, need high oxygen condition to maintain SpO2. Meet sepsis criteria. Will continue ventilator supportive treatment. Cont Abx and IVF. Track lactate level.
[2017-05-12] MEDS: Insulin LISPRO 300 UNITS/3 ML VIAL SQ SCH ×4 (00:07→18:01)
[2017-05-12] MEDS: Lacri-Lube 3.5 GM TUBE BOTH EYES SCH ×2 (00:07→03:21)
[2017-05-12] MEDS: 0.9 % Sodium Chloride 1,000 ML IVC SCH ×2 (00:07→06:08)
[2017-05-12 03:16] LABS: Basophils % 0.1 %; Eosinophils % 0.1 %; Hematocrit 32.8 % (37.5-50.1); Hemoglobin 10.4 g/dL (12.9-16.9); Immature Granulocytes % 0.2 % (0-4); Lymphocytes # 5.6 K/mcL (0.6-4.6); Lymphocytes % 38.5 %; Mean Corpuscular HGB Conc 31.7 g/dL (31.6-35.5); Mean Corpuscular Hemoglobin 29.8 pg (28.0-33.3); Mean Platelet Volume 8.5 fL (9.4-12.4); Monocytes # 0.7 K/mcL (0.0-1.3); Monocytes % 4.8 %; Neutrophils # 8.2 K/mcL (1.6-8.9); Platelet Count 201 K/mcL (140-400); Red Blood Count 3.49 M/mcL (4.19-5.50); Red Cell Distribution Width 14.4 % (11.5-14.5); Segmented Neutrophils % 56.3 %
[2017-05-12 03:27] LABS: BUN/Creatinine Ratio 20 (6-26); Blood Urea Nitrogen 23 mg/dL (8-26); Carbon Dioxide 27 mEq/L (19-29); Chloride 105 mEq/L (98-109); Glucose 196 mg/dL (70-99); Osmolality,Calculated 299 (280-300); Potassium 3.8 mEq/L (3.5-4.5); Sodium 140 mEq/L (136-145); eGFR For African Americans > 60 (> 60); eGFR For Non-African Americans > 60 (> 60)
[2017-05-12 03:29] LABS: Calcium 7.6 mg/dL (8.6-10.8)
[2017-05-12 04:43] LABS: ABG Base Excess 2.2 mEq/L (-2.0 to 3.0); ABG HCO3 27.8 mEQ/L (21-27); ABG Oxygen Saturation 96 % (95-98); ABG PCO2 47 mmHg (35-45); ABG PH 7.38 pH Units (7.32-7.45); ABG PO2 80 mmHg (85-104); ABG TCO2 29.2 mEq/L (20-26)
[2017-05-12 04:47] LABS: Blood Gas FiO2 60 %
[2017-05-12] MEDS ORDERED: Calcium Gluconate 1,000 MG in D5% in Water 100 ML IVPB ONE (04:50)
[2017-05-12] MEDS ORDERED: *HR* Heparin 5,000 UNIT/ML VIAL SQ SCH (06:00)
[2017-05-12] MEDS ORDERED: Famotidine 20 MG/2 ML VIAL IVP SCH (06:00)
--- NOTE | 2017-05-12 06:49 | Urology Progress Note ---
Date of Encounter: 05/12/17 Time of Encounter: 06:46 - Assessment and Plan (1) Ureteral stone with hydronephrosis Current Visit: Yes Status: Resolved Assessment and plan: s/p stone extraction and stent. likely uroseptic as he destabilized yesterday evening. stable overnight and hopefully will be extubated this AM. appreciate medicine and CC teams. Progress Note Narrative: intubated in ICU. stable overnight. Objective Initial Vital Signs Temp Pulse Resp BP Pulse Ox 97.8 F 75 18 177/95 96 05/11/17 08:04 05/11/17 08:04 05/11/17 08:04 05/11/17 08:04 05/11/17 08:04 - General physical appearance Present: no distress - Additional Exam eyes open and pointing at ET tube herman with light hematuria - Labs 05/12/17 03:10 05/12/17 03:10 Diabetes panel 05/12/17 Range/Units 03:10 Sodium 140 (136-145) mEq/L Potassium 3.8 (3.5-4.5) mEq/L Chloride 105 (98-109) mEq/L Carbon Dioxide 27 (19-29) mEq/L BUN 23 (8-26) mg/dL Creatinine 1.16 (0.72-1.25) mg/dL Glucose 196 H (70-99) mg/dL Calcium 7.6 L D (8.6-10.8) mg/dL Calcium panel 05/12/17 Range/Units 03:10 Calcium 7.6 L D (8.6-10.8) mg/dL Pituitary panel 05/12/17 Range/Units 03:10 Sodium 140 (136-145) mEq/L Potassium 3.8 (3.5-4.5) mEq/L Chloride 105 (98-109) mEq/L Carbon Dioxide 27 (19-29) mEq/L BUN 23 (8-26) mg/dL Creatinine 1.16 (0.72-1.25) mg/dL Glucose 196 H (70-99) mg/dL Calcium 7.6 L D (8.6-10.8) mg/dL Adrenal panel 05/12/17 Range/Units 03:10 Sodium 140 (136-145) mEq/L Potassium 3.8 (3.5-4.5) mEq/L Chloride 105 (98-109) mEq/L Carbon Dioxide 27 (19-29) mEq/L BUN 23 (8-26) mg/dL Creatinine 1.16 (0.72-1.25) mg/dL Glucose 196 H (70-99) mg/dL Calcium 7.6 L D (8.6-10.8) mg/dL - VTE Documentation of Mechanical Device: Intermittent pneumatic compression device Consult Discharge Plan - Plan Referrals: Juventino Lizama DO [Primary Care Provider] -
[2017-05-12] MEDS ORDERED: Piperacillin/Tazobactam 3.375 GM in D5% in Water (Mini-Bag+) 100 ML IVPB SCH ×2 (08:00→09:00)
[2017-05-12] MEDS ORDERED: Metoprolol XL (24 HR) Succ 25 MG TAB.ER.24H PO SCH (09:00)
[2017-05-12] MEDS ORDERED: Chlorhexidine Rinse 15 ML MOUTHWASH MM SCH (09:00)
[2017-05-12] MEDS ORDERED: *HR* Pioglitazone 30 MG TABLET PO SCH (09:00)
[2017-05-12] MEDS ORDERED: 0.9 % Sodium Chloride 1,000 ML IVC SCH (09:01)
--- NOTE | 2017-05-12 09:07 | Internal Med Progress Note ---
Date of Encounter: 05/12/17 Time of Encounter: 09:06 - Assessment and plan (1) Sepsis Current Visit: Yes Status: Acute Assessment and plan: Pt did meet sepsis criteria with elevated WBC, source of Inf as UTI cont empirical abx Rocephin d/c Zosyn f/u on blood cx and Urine cx Qualifiers: Sepsis type: sepsis due to unspecified organism Qualified Code(s): A41.9 - Sepsis, unspecified organism (2) UTI (urinary tract infection) Current Visit: Yes Status: Acute Qualifiers: Urinary tract infection type: site unspecified Hematuria presence: with hematuria Qualified Code(s): N39.0 - Urinary tract infection, site not specified; R31.9 - Hematuria, unspecified (3) Ureterolithiasis Current Visit: Yes Status: Acute Assessment and plan: s/p stent placement and stone extraction Got extubated today no complications Urology following Richardson cath + (4) CAD (coronary artery disease), [place] coronary artery Current Visit: Yes Status: Chronic Assessment and plan: h/o CAD s/p stents cont home meds - Plavix, Metoprolol Qualifiers: Qualified Code(s): I25.10 - Atherosclerotic heart disease of [place] coronary artery without angina pectoris (5) Tobacco dependence Current Visit: Yes Status: Acute Assessment and plan: counseled to quit He did quit in the past for 17 yrs Encouraged him to quit for good this time placed him on nicotine patch (6) Diabetes mellitus Current Visit: Yes Status: Acute Assessment and plan: stable BS resumed home meds + on ISS Qualifiers: Diabetes mellitus type: type 2 Qualified Code(s): E11.9 - Type 2 diabetes mellitus without complications (7) DVT prophylaxis Current Visit: Yes Status: Acute Assessment and plan: on SQ heparin - Subjective Interval history: Mr. Leon is a 72 year old male with past medical history of CAD, previous CVA, previous [place], hypertension, diabetes, COPD. He originally presented to the ED on 05/11/2017 with complaints of right flank pain. He had a recent diagnosis of a 2 mm stone. Previously, the patient was sent home with Percocet, Flomax, antibiotics. However, he returned to the ER due to worsening pain, difficulty voiding urine. Patient was admitted to urology service for further care. Patient's white blood cell count was 19.7, creatinine was 1.41, which is above the patient's usual baseline around 0.9. Urinalysis was positive for large amounts of blood but was nitrite and leukocyte esterase negative at that time. During the patient's stay, he became febrile, tachycardic, tachypneic. There is concern that the patient could be developing urosepsis. The patient was taken to the OR and had stent placement and removal of right UVJ stone by Dr. Wayne. He was transferred to ICU after surgery for further care and monitoring. Pt just got extubated. He is alert, awake and O x 3. Denied any CP / SOB / Abdominal pain. No nasuea / vomiting. No fever / chills. Still has Richardson + - Constitutional Vitals: Temp Pulse Resp BP Pulse Ox 97.9 F 76 24 111/76 92 05/12/17 07:25 05/12/17 08:00 05/12/17 08:00 05/12/17 08:00 05/12/17 08:00 General appearance: Present: A&O X 3, no acute distress - Head Head exam: Present: atraumatic, normal inspection - Respiratory Respiratory exam: Present: decreased breath sounds, wheezes. Absent: rales, respiratory distress, rhonchi - Cardiovascular Cardiovascular exam: Present: RRR, +S1, +S2. Absent: systolic murmur - GI/Abdominal GI/Abdominal exam: Present: distended, normal bowel sounds, soft. Absent: rebound, rigid, tenderness - Extremities Exam Extremities exam: Absent: calf tenderness, pedal edema, tenderness - Back Exam Back exam: Absent: CVA tenderness (L), CVA tenderness (R) - Psychiatric Psychiatric exam: Present: normal affect, normal mood Internal Medicine: Result - Labs CBC & Chem 7: 05/12/17 03:10 05/12/17 03:10 Labs: Short CBC 05/12/17 Range/Units 03:10 WBC 14.6 H (4.3-11.1) K/mcL Hgb 10.4 L (12.9-16.9) g/dL Hct 32.8 L (37.5-50.1) % Plt Count 201 (140-400) K/mcL Neutrophils # 8.2 (1.6-8.9) K/mcL BMP 05/12/17 03:10 Sodium 140 Potassium 3.8 Chloride 105 Carbon Dioxide 27 BUN 23 Creatinine 1.16 Glucose 196 H Calcium 7.6 L D - ABG Interpretation ABG results: ABG ABG pH 7.38 pH Units (7.32-7.45) 05/12/17 04:18 ABG pCO2 47 mmHg (35-45) H 05/12/17 04:18 ABG pO2 80 mmHg (85-104) L 05/12/17 04:18 ABG O2 Saturation 96 % (95-98) 05/12/17 04:18 - Impressions Impressions Fluoroscopy 05/11/17 21:43 IMPRESSION: Intraprocedural fluoroscopic spot images as above. See separate procedure report for more information. D/ / Miguel Butler MD / Miguel Butler MD Interpreting Provider: Miguel Butler MD Chest X-Ray 05/11/17 22:47 IMPRESSION: 1. Endotracheal tube terminates 5.2 cm above the zamzam. 2. Enteric tube tip and side-port in the gastric body below the gastroesophageal junction. 3. Low lung volumes with right greater left bibasilar atelectasis. D/ / Miguel Butler MD / Miguel Butler MD Interpreting Provider: Miguel Butler MD - VTE Documentation of Mechanical Device: Intermittent pneumatic compression device Consult Discharge Plan - Plan Referrals: Juventino Lizama DO [Primary Care Provider] -
--- NOTE | 2017-05-12 10:32 | Pulmonology Consult Note ---
<Jasson Virgen - Last Filed: 05/12/17 10:02> Date of Encounter: 05/12/17 Time of Encounter: 07:00 Assessment and Plan (1) Sepsis Current Visit: Yes Status: Acute Patient met sepsis criteria. His WBC count currently 14.6<19.7. Source of infection as UTI. Continue with antibiotic Rocephin. f/u on blood cx and urine cx. Monitor with a.m. labs Qualifiers: Sepsis type: sepsis due to unspecified organism Qualified Code(s): A41.9 - Sepsis, unspecified organism (2) Ureterolithiasis Current Visit: Yes Status: Acute post-operative day #1 right ureteroscopic stone extraction, right retrograde pyelogram, right JJ stent placement by Dr. Lorenzo. Patient is extubated today without complications. Patient would like to have herman removed. Spoke with hospitalist and he is ok to have the herman taken out. Herman is discontinued at this time. (3) UTI (urinary tract infection) Current Visit: Yes Status: Acute Continue with Rocephin. Follow-up on blood and urine cultures. Monitor with a.m. labs. Qualifiers: Urinary tract infection type: site unspecified Hematuria presence: with hematuria Qualified Code(s): N39.0 - Urinary tract infection, site not specified; R31.9 - Hematuria, unspecified (4) CAD (coronary artery disease), [place] coronary artery Current Visit: No Status: Chronic history of CAD s/p stents Continue home meds - plavix, metoprolol. Qualifiers: Qualified Code(s): I25.10 - Atherosclerotic heart disease of [place] coronary artery without angina pectoris (5) Tobacco dependence Current Visit: No Status: Acute Continue with nicotine patch and encourage to quit. (6) Diabetes mellitus Current Visit: No Status: Acute blood sugar 181<124 The patient has already resumed home meds and on ISS. Continue to monitor with POC glucose and keep goal at <180 Qualifiers: Diabetes mellitus type: type 2 Qualified Code(s): E11.9 - Type 2 diabetes mellitus without complications (7) DVT prophylaxis Current Visit: Yes Status: Acute History of Present Illness Consult date: 05/12/17 Reason for consult: other (urosepsis) History of present illness: 72 year old male with PMH of CAD, previous CVA, previous ME, hypertension, diabetes, COPD. He presented to ED on 05/11/17 for right flank pain. He was recently diagnosed with a 2mm stone and was sent home with Percocet, Flomax, antibiotics. He returned to ED due to worsening pain with voiding. His WBC went up to 19.7, creating 1.41. Urinalysis positive for blood but nitrite and leukocyte esterase negative. Patient was febrile, tachycardic, tachypneic. There was concern that the patient could be developing urosepsis. Patient had his stent placed and right UVJ stone removed by Dr. Wayne. He is transferred to ICU post-operatively for further care and monitoring. Patient was just extubated today. He is hemodynamically stable. denies CP, shortness of breath, nausea, vomiting. Herman + Past Med Surg Social Fam HX - Past Medical History Medical history: arthritis, coronary artery disease, CVA, diabetes, hypertension , myocardial infarction, other - Past Surgical History Surgical History: appendectomy - Social History Smoking Status: Current every day smoker Packs per day: 1 pack Smokeless Tobacco Status: No Alcohol use: none Drug use: none Medications and Allergies Tamsulosin HCl [Flomax] 0.4 mg PO DAILY #7 cap.er.24h 05/10/17 [Rx] Cholecalciferol (Vitamin D3) [Vitamin D] 1,000 unit PO DAILY 05/11/17 [History] Clopidogrel [Plavix] 75 mg PO DAILY 05/11/17 [History] Gabapentin [Neurontin] 100 mg PO HS 05/11/17 [History] GlipiZIDE [Glipizide ER] 10 mg PO BID 05/11/17 [History] Krill/Om-3/Dha/Epa/Phospho/Ast [Krill Oil 1,000 mg Softgel] 1 cap PO DAILY 05/11 [History] Meclizine [Antivert] 12.5 mg PO TID PRN 05/11/17 [History] Metformin HCl [Glucophage] 1,000 mg PO BID 05/11/17 [History] Metoprolol XL (24 HR) Succ [Toprol XL] 12.5 mg PO BID 05/11/17 [History] OxyCODONE/APAP 10/325 [Percocet 10/325 MG] 1 tab PO QID PRN 05/11/17 [History] Pantoprazole Sodium [Protonix] 40 mg PO DAILY 05/11/17 [History] Pioglitazone HCl [Pioglitazone HCl] 30 mg PO DAILY 05/11/17 [History] 3 Allergy/AdvReac Type Severity Reaction Status Date / Time No Known Allergies Allergy Verified 05/11/17 08:04 All Systems: A 10-system review of systems was performed and is negative for pertinent findings except as documented above in the HPI. - Constitutional Constitutional: as per HPI - Cardiovascular Cardiovascular: as per HPI - Respiratory Respiratory: as per HPI - Gastrointestinal Gastrointestinal: no abdominal pain, no nausea, no vomiting - Genitourinary Genitourinary: no dysuria - Neurological Neurological: no abnormal speech, no memory loss, no numbness, no paresthesias, no syncope, no tingling - Psychiatric Psychiatric: no anxiety - Hematologic/Lymphatic Hematologic/Lymphatic: no easy bleeding, no easy bruising Physical Examination Vital Signs: Vital Signs, Last 4 Hours Temp Pulse Resp BP Pulse Ox 05/12/17 09:00 72 16 108/62 98 05/12/17 08:00 76 24 111/76 92 05/12/17 07:25 97.9 F 80 16 124/83 96 General appearance: no acute distress Eyes: nonicteric ENT: oropharynx moist Neck: supple Effort: normal Inspection: normal Auscultation: bilateral: clear Cardiovascular: regular rate and rhythm Gastrointestinal: normoactive bowel sounds, non-distended Integumentary: normal Extremities: no cyanosis Musculoskeletal: no deformities Gait: normal posture Ventilator Settings Ventilator Settings: Ventilator Settings, Last 8 Hours Ventilator Mode A/C Ventilator Mode A/C Ventilator Mode A/C Ventilator Mode A/C Ventilator Mode A/C Ventilator Mode A/C Ventilator Mode A/C Ventilator Mode A/C Ventilator Tidal Volume 400 Setting Ventilator Tidal Volume 400 Setting Ventilator Tidal Volume 400 Setting Ventilator Tidal Volume 400 Setting Ventilator Tidal Volume 400 Setting Ventilator Tidal Volume 400 Setting Ventilator Tidal Volume 400 Setting Ventilator Tidal Volume 400 Setting Ventilator Respiratory Rate 12 Setting Ventilator Respiratory Rate 12 Setting Ventilator Respiratory Rate 12 Setting Ventilator Respiratory Rate 12 Setting Ventilator Respiratory Rate 12 Setting Ventilator Respiratory Rate 12 Setting Ventilator Respiratory Rate 12 Setting Actual Respiratory Rate 17 Actual Respiratory Rate 19 Actual Respiratory Rate 17 Actual Respiratory Rate 16 Actual Respiratory Rate 16 Actual Respiratory Rate 15 Actual Respiratory Rate 14 Positive End Expiratory 5 Pressure Positive End Expiratory 5 Pressure Positive End Expiratory 5 Pressure Positive End Expiratory 5 Pressure Positive End Expiratory 5 Pressure Positive End Expiratory 5 Pressure Positive End Expiratory 5 Pressure Positive End Expiratory 5 Pressure Peak Inspiratory Airway 11 Pressure Peak Inspiratory Airway 11 Pressure Peak Inspiratory Airway 22 Pressure Peak Inspiratory Airway 20 Pressure Peak Inspiratory Airway 21 Pressure Peak Inspiratory Airway 22 Pressure Peak Inspiratory Airway 20 Pressure Results - Laboratory Findings CBC and BMP: 05/12/17 03:10 05/12/17 03:10 ABG ABG pH 7.38 pH Units (7.32-7.45) 05/12/17 04:18 ABG pCO2 47 mmHg (35-45) H 05/12/17 04:18 ABG pO2 80 mmHg (85-104) L 05/12/17 04:18 ABG O2 Saturation 96 % (95-98) 05/12/17 04:18 Abnormal lab findings: Abnormal lab results WBC 14.6 K/mcL (4.3-11.1) H 05/12/17 03:10 RBC 3.49 M/mcL (4.19-5.50) L 05/12/17 03:10 Hgb 10.4 g/dL (12.9-16.9) L 05/12/17 03:10 Hct 32.8 % (37.5-50.1) L 05/12/17 03:10 MPV 8.5 fL (9.4-12.4) L 05/12/17 03:10 Lymphocytes # 5.6 K/mcL (0.6-4.6) H 05/12/17 03:10 ABG pCO2 47 mmHg (35-45) H 05/12/17 04:18 ABG pO2 80 mmHg (85-104) L 05/12/17 04:18 ABG HCO3 27.8 mEQ/L (21-27) H 05/12/17 04:18 ABG Total CO2 29.2 mEq/L (20-26) H 05/12/17 04:18 Glucose 196 mg/dL (70-99) H 05/12/17 03:10 POC Glucose 181 (58-89) H 05/12/17 05:34 Calcium 7.6 mg/dL (8.6-10.8) L D 05/12/17 03:10 Ionized Calcium 1.02 mmol/L (1.15-1.35) L 05/12/17 05:54 Ur Specific [place] 1.028 (1.010-1.025) H 05/11/17 09:22 Urine Glucose (UA) >=1000 mg/dL (Normal) H 05/11/17 09:22 Urine Ketones Trace mg/dL (Negative) H 05/11/17 09:22 Urine Blood Large (Negative) H 05/11/17 09:22 Urine Microscopic RBC 50-100 per hpf (0-3) H 05/11/17 09:22 - Clinical Findings Intake & Output: Intake & Output 05/11/17 05/12/17 05/12/17 23:59 07:59 15:59 Intake Total 100 / 200 1142 / 1142 120 / 120 Output Total 250 / 250 1335 / 1335 170 / 170 Balance -150 / -50 -193 / -193 -50 / -50 Weight 86.5 kg Consult Discharge Plan - Plan Referrals: Juventino Lizama DO [Primary Care Provider] - <Jalil Almodovar - Last Filed: 05/12/17 14:03> Date of Encounter: 05/12/17 All Systems: A 10-system review of systems was performed and is negative for pertinent findings except as documented above in the HPI. Physical Examination Vital Signs: Vital Signs, Last 4 Hours Temp Pulse Resp BP Pulse Ox 05/12/17 12:00 93 20 141/87 94 05/12/17 11:48 98.0 F 05/12/17 11:00 76 22 152/87 97 Ventilator Settings Ventilator Settings: Ventilator Settings, Last 8 Hours Ventilator Mode A/C Ventilator Mode A/C Ventilator Tidal Volume 400 Setting Ventilator Tidal Volume 400 Setting Ventilator Respiratory Rate 12 Setting Ventilator Respiratory Rate 12 Setting Actual Respiratory Rate 17 Positive End Expiratory 5 Pressure Positive End Expiratory 5 Pressure Peak Inspiratory Airway 11 Pressure Results - Laboratory Findings CBC and BMP: 05/12/17 03:10 05/12/17 03:10 ABG ABG pH 7.38 pH Units (7.32-7.45) 05/12/17 04:18 ABG pCO2 47 mmHg (35-45) H 05/12/17 04:18 ABG pO2 80 mmHg (85-104) L 05/12/17 04:18 ABG O2 Saturation 96 % (95-98) 05/12/17 04:18 Abnormal lab findings: Abnormal lab results WBC 14.6 K/mcL (4.3-11.1) H 05/12/17 03:10 RBC 3.49 M/mcL (4.19-5.50) L 05/12/17 03:10 Hgb 10.4 g/dL (12.9-16.9) L 05/12/17 03:10 Hct 32.8 % (37.5-50.1) L 05/12/17 03:10 MPV 8.5 fL (9.4-12.4) L 05/12/17 03:10 Lymphocytes # 5.6 K/mcL (0.6-4.6) H 05/12/17 03:10 ABG pCO2 47 mmHg (35-45) H 05/12/17 04:18 ABG pO2 80 mmHg (85-104) L 05/12/17 04:18 ABG HCO3 27.8 mEQ/L (21-27) H 05/12/17 04:18 ABG Total CO2 29.2 mEq/L (20-26) H 05/12/17 04:18 Glucose 196 mg/dL (70-99) H 05/12/17 03:10 POC Glucose 112 (58-89) H 05/12/17 11:26 Calcium 7.6 mg/dL (8.6-10.8) L D 05/12/17 03:10 Ionized Calcium 1.02 mmol/L (1.15-1.35) L 05/12/17 05:54 Ur Specific [place] 1.028 (1.010-1.025) H 05/11/17 09:22 Urine Glucose (UA) >=1000 mg/dL (Normal) H 05/11/17 09:22 Urine Ketones Trace mg/dL (Negative) H 05/11/17 09:22 Urine Blood Large (Negative) H 05/11/17 09:22 Urine Microscopic RBC 50-100 per hpf (0-3) H 05/11/17 09:22 - Clinical Findings Intake & Output: Intake & Output 05/11/17 05/12/17 05/12/17 23:59 07:59 15:59 Intake Total 100 / 200 1252 / 1252 1520 / 1520 Output Total 250 / 250 1335 / 1335 880 / 880 Balance -150 / -50 -83 / -83 640 / 640 Weight 86.5 kg - Attending Attestation I examined this patient and my medical decision-making was reviewed with the Resident Physician. I agree with the documented findings, disposition and treatment plan as described except to the extent set forth below. Patient seen and examined. Labs, radiology, chart personally reviewed. Agree with resident's history and physical, assessment, plan with following comments: REHABILITATION SERVICES MANAGER: Patient follows commands, Pulmonary: Acceptable oxygenation and ventilation. I saw this patient this morning when he was on the ventilator and still intubated, patient was doing well and he was fully awake and patient was extubated successfully after that. This was postoperative intubation after he had surgery done. Cardiovascular: stable hemodynamically and discussed with hospitalist that patient is stable to be transferred to the floor. GI: Nutrition per dietary and GI prophylaxis per routine Heme: DVT prophylaxis per routine ID: Continue antibiotics and plan to de-escalation Renal; urine out put and renal funtion reviewed Endorcine: blood glucose is monitored Lines: all lines checked and no evidence of infections Skin: skin care to prevent pressure ulcers per nursing routine care Thank you for the consultation and place call for any questions.
[2017-05-12] MEDS ORDERED: *HR* Morphine 2 MG/ML SYRINGE IVP PRN (10:52)
[2017-05-12] MEDS ORDERED: Naloxone 0.4 MG/ML INJ IVP PRN (10:52)
[2017-05-12] MEDS ORDERED: *HR* OxyCODONE Immed Rel 5 MG TABLET PO PRN (10:52)
[2017-05-12] MEDS ORDERED: Dextrose Gel 15 GM PO PRN ×2 (10:52)
[2017-05-12] MEDS ORDERED: *HR* HYDROmorphone (PF) 1 MG/ML SYRINGE IVP PRN (10:52)
[2017-05-12] MEDS ORDERED: D5% in Water 1,000 ML IVC PRN (10:52)
[2017-05-12] MEDS ORDERED: Ondansetron 4 MG/2 ML VIAL IVP PRN (10:52)
[2017-05-12] MEDS ORDERED: *HR* Dextrose 50 % in Water (Syg) 50 ML SYRINGE IVP PRN (10:52)
[2017-05-12] MEDS ORDERED: *HR* Belladonna Alkaloids/Opium 30 MG RECTAL SUPPOSITORY RC PRN (10:52)
[2017-05-12] MEDS ORDERED: Chloraseptic Spray 177 ML BOTTLE MM PRN (11:03)
[2017-05-12] MEDS: *HR* OxyCODONE/APAP 10/325 TABLET PO PRN ×3 (12:32→22:15)
[2017-05-12] MEDS: *HR* Heparin 5,000 UNIT/ML VIAL SQ SCH (18:03)
[2017-05-12] MEDS ORDERED: Piperacillin/Tazobactam 3.375 GM in D5% in Water (Mini-Bag+) 100 ML IVPB ONE (19:46)
[2017-05-12] MEDS ORDERED: Gabapentin 100 MG CAPSULE PO SCH ×2 (21:00)
[2017-05-12] MEDS: Metoprolol XL (24 HR) Succ 25 MG TAB.ER.24H PO SCH (22:15)
[2017-05-13] MEDS ORDERED: Acetaminophen 325 MG TABLET PO PRN (01:04)
[2017-05-13] MEDS: Insulin LISPRO 300 UNITS/3 ML VIAL SQ SCH (01:19)
[2017-05-13 04:24] LABS: Hematocrit 34.8 % (37.5-50.1); Hemoglobin 11.2 g/dL (12.9-16.9); Mean Corpuscular HGB Conc 32.2 g/dL (31.6-35.5); Mean Corpuscular Hemoglobin 30.7 pg (28.0-33.3); Mean Corpuscular Volume 95.3 fL (83.0-100.0); Mean Platelet Volume 8.9 fL (9.4-12.4); Platelet Count 209 K/mcL (140-400); Red Blood Count 3.65 M/mcL (4.19-5.50); Red Cell Distribution Width 14.5 % (11.5-14.5)
[2017-05-13 04:39] LABS: BUN/Creatinine Ratio 13 (6-26); Blood Urea Nitrogen 13 mg/dL (8-26); Calcium 8.7 mg/dL (8.6-10.8); Carbon Dioxide 32 mEq/L (19-29); Chloride 104 mEq/L (98-109); Glucose 219 mg/dL (70-99); Osmolality,Calculated 303 (280-300); Potassium 3.7 mEq/L (3.5-4.5); Sodium 143 mEq/L (136-145); eGFR For African Americans > 60 (> 60); eGFR For Non-African Americans > 60 (> 60)
[2017-05-13] MEDS: *HR* Heparin 5,000 UNIT/ML VIAL SQ SCH (05:43)
--- NOTE | 2017-05-13 07:04 | Discharge Summary ---
Date of Encounter: 05/13/17 Time of Encounter: 07:00 - Discharge Diagnosis (1) Ureteral stone with hydronephrosis Priority: Primary Status: Resolved - Discharge Medications Prescriptions: Oxycodone HCl/Acetaminophen [Percocet 5-325 mg Tablet] 1 each PO Q4H PRN #15 tablet PRN Reason: Pain Phenazopyridine HCl [Pyridium] 200 mg PO TIDAC #15 tab Sulfamethoxazole/Trimeth DS [Bactrim DS] 1 each PO BID #20 tablet Home Medications: Tamsulosin HCl [Flomax] 0.4 mg PO DAILY #7 cap.er.24h 05/10/17 [Rx] Cholecalciferol (Vitamin D3) [Vitamin D3] 1,000 unit PO DAILY 05/11/17 [History] Clopidogrel [Plavix] 75 mg PO DAILY 05/11/17 [History] Gabapentin [Neurontin] 100 mg PO HS 05/11/17 [History] GlipiZIDE [Glipizide ER] 10 mg PO BID 05/11/17 [History] Krill/Om-3/Dha/Epa/Phospho/Ast [Krill Oil 1,000 mg Softgel] 1 cap PO DAILY 05/11 [History] Meclizine [Antivert] 12.5 mg PO TID PRN 05/11/17 [History] Metformin HCl [Glucophage] 1,000 mg PO BID 05/11/17 [History] Metoprolol XL (24 HR) Succ [Toprol Xl] 12.5 mg PO BID 05/11/17 [History] Pantoprazole Sodium [Protonix] 40 mg PO DAILY 05/11/17 [History] Pioglitazone HCl 30 mg PO DAILY 05/11/17 [History] Oxycodone HCl/Acetaminophen [Percocet 5-325 mg Tablet] 1 each PO Q4H PRN #15 tablet 05/13/17 [Rx] Phenazopyridine HCl [Pyridium] 200 mg PO TIDAC #15 tab 05/13/17 [Rx] Sulfamethoxazole/Trimeth DS [Bactrim DS] 1 each PO BID #20 tablet 05/13/17 [Rx] Allergies/Adverse Reactions: 3 Allergy/AdvReac Type Severity Reaction Status Date / Time No Known Allergies Allergy Verified 05/11/17 08:04 Labs on day of discharge: Labs from last 24 hours 05/13/17 05/13/17 05/13/17 03:56 03:56 00:01 WBC 14.4 H RBC 3.65 L Hgb 11.2 L Hct 34.8 L MCV 95.3 MCH 30.7 MCHC 32.2 RDW 14.5 Plt Count 209 MPV 8.9 L Sodium 143 Potassium 3.7 Chloride 104 Carbon Dioxide 32 H BUN 13 D Creatinine 0.97 Est GFR ( Amer) > 60 Est GFR (Non-Af Amer) > 60 BUN/Creatinine Ratio 13 Glucose 219 H POC Glucose 290 H Calculated Osmolality 303 H Calcium 8.7 05/12/17 05/12/17 17:47 11:26 WBC RBC Hgb Hct MCV MCH MCHC RDW Plt Count MPV Sodium Potassium Chloride Carbon Dioxide BUN Creatinine Est GFR ( Amer) Est GFR (Non-Af Amer) BUN/Creatinine Ratio Glucose POC Glucose 206 H 112 H Calculated Osmolality Calcium - Impressions ITS Impressions Fluoroscopy 05/11/17 21:43 IMPRESSION: Intraprocedural fluoroscopic spot images as above. See separate procedure report for more information. D/ / Miguel Butler MD / Miguel Butler MD Interpreting Provider: Miguel Butler MD Chest X-Ray 05/11/17 22:47 IMPRESSION: 1. Endotracheal tube terminates 5.2 cm above the zamzam. 2. Enteric tube tip and side-port in the gastric body below the gastroesophageal junction. 3. Low lung volumes with right greater left bibasilar atelectasis. D/ / Miguel Butler MD / Miguel Butler MD Interpreting Provider: Miguel Butler MD Date of admission: 05/11/17 21:08 Primary care physician: Juventino Lizama, Discharging clinician: Stevo Wayne Anticipated date of discharge: 05/13/17 - Patient Status Disposition: Home, Self-Care Condition: Good Functional capacity at discharge: independent ambulation Overall status at discharge: patient is progressing back to baseline - Discharge Instructions Follow Up With: Juventino Lizama DO [Primary Care Provider] - Stevo Wayne MD [Partnered Physician] - (1-2 weeks for office cystoscopy stent removal) Additional Instructions: Expect stent discomfort including urgency, frequency, burning on urination, blood in the urine, flank pain during urination. This is normal. Call if fever over 101 that does not respond to ibuprofen or Tylenol. - Diet and Activity Activity: increase activity as tolerated Diet: diabetic diet - Hospital Course Hospital course: Mr. Leon is a 72 year old male status post ureteroscopic stone extraction and stent placement. Concern for urosepsis requiring temporary ICU stay after surgery. Recovered nicely. Vital signs stable. Labs okay except for white blood cell count at 14,000. Patient feels good. Ready for discharge today. - Time Spent with Patient Total time spent providing and/or coordinating discharge services: Less than 30 minutes Exam Initial Vital Signs Temp Pulse Resp BP Pulse Ox 97.8 F 75 18 177/95 96 05/11/17 08:04 05/11/17 08:04 05/11/17 08:04 05/11/17 08:04 05/11/17 08:04 - General physical appearance Present: well developed, no distress - VTE Documentation of Mechanical Device: Intermittent pneumatic compression device
[2017-05-13 07:28] VITALS: BP 152/86
[2017-05-13] MEDS ORDERED: Insulin LISPRO 300 UNITS/3 ML VIAL SQ SCH ×2 (07:30→21:00)
[2017-05-13] MEDS: *HR* OxyCODONE/APAP 10/325 TABLET PO PRN (08:02)
[2017-05-13] MEDS: Metoprolol XL (24 HR) Succ 25 MG TAB.ER.24H PO SCH (08:03)
--- NOTE | 2017-05-13 14:45 | Internal Med Progress Note ---
Date of Encounter: 05/13/17 Time of Encounter: 08:30 - Assessment and plan (1) Sepsis Status: Acute Assessment and plan: Sepsis secondary to UTI present on admission - now improved Continue Bactrim prescribed by Dr. Wayne Qualifiers: Sepsis type: sepsis due to unspecified organism Qualified Code(s): A41.9 - Sepsis, unspecified organism (2) Diabetes mellitus Status: Acute Assessment and plan: Continue home meds Qualifiers: Diabetes mellitus type: type 2 Qualified Code(s): E11.9 - Type 2 diabetes mellitus without complications (3) Tobacco dependence Status: Acute Assessment and plan: Counseled about cessation (4) UTI (urinary tract infection) Status: Acute Assessment and plan: UTI present on admission, continue Bactrim Qualifiers: Urinary tract infection type: site unspecified Hematuria presence: with hematuria Qualified Code(s): N39.0 - Urinary tract infection, site not specified; R31.9 - Hematuria, unspecified (5) Ureterolithiasis Status: Acute Assessment and plan: s/p stent placement and stone extraction no complications Follow-up with urology as outpatient (6) CAD (coronary artery disease), [place] coronary artery Status: Chronic Assessment and plan: h/o CAD s/p stents - cont home meds - Plavix, Metoprolol Qualifiers: Qualified Code(s): I25.10 - Atherosclerotic heart disease of [place] coronary artery without angina pectoris - Time Spent With Patient 25 - 35 minutes - Subjective Interval history: Examined this morning. Patient is awake and alert. Not in any distress. Denies chest pain or shortness of breath. No fever. Hemodynamically stable. Urology has discharged the patient today. Sepsis secondary to UTI has now improved. Patient did have a ureteral stent placement and stone extraction done. He will need urology follow-up. No other acute events or complaints. - Constitutional Vitals: Temp Pulse Resp BP Pulse Ox 98.7 F 72 17 152/86 94 05/13/17 07:26 05/13/17 07:26 05/13/17 07:26 05/13/17 07:26 05/13/17 07:26 General appearance: Present: A&O X 3, pleasant, no acute distress, answers questions appropriately - Head Head exam: Present: atraumatic - Eye Eye exam: Present: EOMI - ENT ENT exam: Present: mucous membranes moist - Respiratory Respiratory exam: Present: CTAB. Absent: rales, rhonchi, wheezes, tachypnea - Cardiovascular Cardiovascular exam: Present: RRR, +S1, +S2 - GI/Abdominal GI/Abdominal exam: Present: soft. Absent: distended, firm, guarding, tenderness - Extremities Exam Extremities exam: Present: radial pulses palpable and symmetrical. Absent: cyanotic, pedal edema - Neurological Exam Neurological exam: Present: alert, oriented X3, no focal deficits. Absent: facial droop, speech deficit Internal Medicine: Result - Labs CBC & Chem 7: 05/13/17 03:56 05/13/17 03:56 Labs: Short CBC 05/13/17 Range/Units 03:56 WBC 14.4 H (4.3-11.1) K/mcL Hgb 11.2 L (12.9-16.9) g/dL Hct 34.8 L (37.5-50.1) % Plt Count 209 (140-400) K/mcL BMP 05/13/17 03:56 Sodium 143 Potassium 3.7 Chloride 104 Carbon Dioxide 32 H BUN 13 D Creatinine 0.97 Glucose 219 H Calcium 8.7 - ABG Interpretation ABG results: ABG ABG pH 7.38 pH Units (7.32-7.45) 05/12/17 04:18 ABG pCO2 47 mmHg (35-45) H 05/12/17 04:18 ABG pO2 80 mmHg (85-104) L 05/12/17 04:18 ABG O2 Saturation 96 % (95-98) 05/12/17 04:18 - VTE Documentation of Mechanical Device: Intermittent pneumatic compression device Consult Discharge Plan - Plan Instructions: Sepsis (DC) Additional Instructions: Expect stent discomfort including urgency, frequency, burning on urination, blood in the urine, flank pain during urination. This is normal. Call if fever over 101 that does not respond to ibuprofen or Tylenol. Referrals: Stevo Wayne MD [Partnered Physician] - 05/28/17 3:00 pm (1-2 weeks for office cystoscopy stent removal) Prescriptions: Oxycodone HCl/Acetaminophen [Percocet 5-325 mg Tablet] 1 each PO Q4H PRN #15 tablet PRN Reason: Pain Phenazopyridine HCl [Pyridium] 200 mg PO TIDAC #15 tab Sulfamethoxazole/Trimeth DS [Bactrim DS] 1 each PO BID #20 tablet
== END 2017-05-13 09:30 | disposition home or self-care (01) | DRG 854 ==
LOC: EMEROO 08:03 → 3ANU 08:03 → ICNU 21:07 → SUATTDRO 21:08 → 3ANU 05-12 14:32
PROVIDERS: ADMIT Urology; ATTEND Family Medicine

== ENCOUNTER 2019-06-02 16:04 | Inpatient (IN) ==
[2019-06-02] MEDS ORDERED: 0.9 % Sodium Chloride 1,000 ML IVC ONE (16:17)
--- NOTE | 2019-06-02 16:30 | Emergency Department Note ---
Disposition Clinical Impression: Hospital-acquired pneumonia, CLL (chronic lymphocytic leukemia) Disposition: Admitted As Inpatient Condition: Fair Time of Disposition: 18:06 General Adult HPI - General Stated complaint: hyperglycemic Time Seen by Provider: 06/02/19 16:15 Source: patient, EMS Limitations: no limitations Nursing Notes Reviewed: Yes Vital Signs Reviewed: Yes - History of Present Illness HPI Narrative: Patient presents per EMS and he does have CLL and has been having fevers for the last several weeks and was treated at [facility] antibiotics but is not currently taking antibiotics and his has now arrived. The patient did have a headache earlier but no headache now. Does have some rhinorrhea and a dry cough and some minimal shortness of breath but no chest pain or abdominal pain or back pain. Does have some dysuria but no urinary frequency. No blood in the urine or stool. Social history: Smoker, no alcohol Pain Scale: 0 - Related Data Home Medications Medication Instructions Recorded Confirmed Cholecalciferol (Vitamin D3) 1,000 unit PO DAILY 05/11/17 06/02/19 [Vitamin D3] Clopidogrel [Plavix] 75 mg PO DAILY 05/11/17 06/02/19 Metformin HCl [Glucophage] 1,000 mg PO BIDWM 05/11/17 06/02/19 Metoprolol XL (24 HR) Succ [Toprol 12.5 mg PO BID 05/11/17 06/02/19 Xl] Pantoprazole Sodium [Protonix] 40 mg PO DAILY 05/11/17 06/02/19 glipiZIDE [Glipizide ER] 10 mg PO BIDWM 05/11/17 06/02/19 Amitriptyline [Elavil] 50 mg PO BID 06/02/19 06/02/19 OxyCODONE/APAP 10/325 [Percocet 1 each PO Q6HR PRN 06/02/19 06/02/19 10/325 MG] Previous Rx's Medication Instructions Recorded Tamsulosin HCl [Flomax] 0.4 mg PO DAILY #7 cap.er.24h 05/10/17 Allergies Allergy/AdvReac Type Severity Reaction Status Date / Time No Known Allergies Allergy Verified 05/11/17 08:04 All systems ED: reviewed and negative except as stated. Past Medical History - Past Medical History Medical history: Reports: arthritis, cancer, coronary artery disease, CVA, diabetes, hypertension, myocardial infarction, other Surgical history: Reports: appendectomy Psychiatric history: Reports: no psych history - Social History Smoking Status: Current every day smoker Smokeless Tobacco Status: No Alcohol use: Reports: none Drug use: Reports: none Physical Exam CONSTITUTIONAL: Well-appearing; well-nourished; A&O X3, in no apparent distress HEAD: Normocephalic; atraumatic. EYES: PERRL, EOMI, no scleral icterus NOSE: The nose is normal in appearance without rhinorrhea NECK: Supple without rigidity, no JOSHUA RESP: Normal chest excursion with respiration; breath sounds with coarse crackles right lower lung field but no wheezing. Left lung sounds are clear CARD: Regular rhythm, without murmurs, rub or gallop ABD: Non-distended; non-tender, soft, without rigidity, rebound or guarding SKIN: Normal for age and race; warm and dry; no apparent lesions, no rash NEUROLOGICAL: Patient is alert and oriented times three. Cranial nerves III- XII are intact. Sensory and motor functions are intact. Strength is 5/5 for flexion and extension in all 4 extremities. Patellar DTRS are equal and intact. Finger to nose testing is equal and normal bilaterally. - General Limitations: no limitations General appearance: alert, in no apparent distress Course Vital Signs Temperature 101.1 F H 06/02/19 16:10 Pulse Rate 101 06/02/19 16:10 Respiratory Rate 18 06/02/19 16:10 Blood Pressure 121/77 06/02/19 16:10 O2 Sat by Pulse Oximetry 87 06/02/19 16:10 Temperature 100 F H 06/02/19 18:22 Pulse Rate 70 06/02/19 18:22 Respiratory Rate 20 06/02/19 18:22 Blood Pressure 127/78 06/02/19 18:22 O2 Sat by Pulse Oximetry 92 06/02/19 18:22 Oxygen Delivery Oxygen Delivery Nasal Cannula Medical Decision Making - MDM Narrative Medical decision making narrative: Concern for pneumonia or bacteremia or other source of infection and patient does have labs ordered including urine and blood cultures, lactate level, chest x-ray, will be watched closely here in the emergency department and reassessed. 1L NS bolus 1630 I did review the test results including a chest x-ray which does confirm pneumonia and this is consistent with the clinical presentation of the patient, I did speak with Dr. Rojo from oncology who will consult and I did also speak with the hospitalist who accepts the patient for admission. I did start him on Zosyn and vancomycin as he was recently in the hospital at [facility] and the patient will be admitted and treated for pneumonia. Likely diagnosis also of CLL being followed by oncology. I did confirm with the family there is no confusion. 1805 Speak with the hospitalist who accepts the patient for admission - Medical Records Medical records reviewed: Yes I reviewed the patient's medical records. - Lab Data Lab results reviewed: Yes I reviewed the patient's lab results. Result diagrams: 06/02/19 16:34 06/02/19 16:34 Lab Results 06/02/19 06/02/19 06/02/19 Range/Units 16:34 16:34 16:34 WBC 34.1 H* (4.3-11.1) K/mcL RBC 3.16 L (4.19-5.50) M/mcL Hgb 9.2 L (12.9-16.9) g/dL Hct 28.7 L (37.5-50.1) % MCV 90.8 (83.0-100.0) fL MCH 29.1 (28.0-33.3) pg MCHC 32.1 (31.6-35.5) g/dL RDW 14.7 H (11.5-14.5) % Plt Count 480 H (140-400) K/mcL MPV 9.1 L (9.4-12.4) fL Immature Gran % 0.8 (0-4) % Seg Neutrophils % 29.1 % Lymphocytes % 64.8 % Monocytes % 4.7 % Eosinophils % 0.4 % Basophils % 0.2 % Neutrophils # 9.9 H (1.6-8.9) K/mcL Lymphocytes # 22.1 H (0.6-4.6) K/mcL Monocytes # 1.6 H (0.0-1.3) K/mcL Eosinophils # 0.1 (0.0-0.6) K/mcL Basophils # 0.1 (0.0-0.2) K/mcL Reactive Lymphocytes Present A (Not Present) Smudge Cells Present A (Not Present) Platelet Estimate Normal (Normal) Sodium 133 L (136-145) mEq/L Potassium 4.3 (3.5-5.1) mEq/L Chloride 95 L (98-107) mEq/L Carbon Dioxide 29 (23-29) mEq/L BUN 13 (8-23) mg/dL Creatinine 0.73 (0.70-1.30) mg/dL Est GFR ( Amer) > 60 (> 60) Est GFR (Non-Af Amer) > 60 (> 60) BUN/Creatinine Ratio 18 (6-26) Glucose 283 H (70-105) mg/dL Calculated Osmolality 286 (280-300) Lactic Acid 1.4 (0.5-2.2) mmol/L Calcium 8.0 L (8.6-10.3) mg/dL Total Bilirubin 0.3 (0.3-1.0) mg/dL Direct Bilirubin 0.2 (0.0-0.2) mg/dL Indirect Bilirubin 0.1 (0.0-1.2) mg/dL AST 14 (13-39) Units/L ALT 15 (7-52) Units/L Alkaline Phosphatase 98 (34-104) Units/L Serum Total Protein 6.5 (6.4-8.9) g/dL Albumin 3.0 L (3.5-5.7) g/dL Globulin 3.5 (2.4-3.5) g/dL Albumin/Globulin Ratio 0.9 L (1.1-2.2) - Radiology Data Radiology results reviewed: Yes I reviewed the patient's radiology results.
[2019-06-02 16:56] LABS: Eosinophils % 0.4 %; Hemoglobin 9.2 g/dL (12.9-16.9); Immature Granulocytes % 0.8 % (0-4); Mean Corpuscular Hemoglobin 29.1 pg (28.0-33.3); Mean Platelet Volume 9.1 fL (9.4-12.4); Red Blood Count 3.16 M/mcL (4.19-5.50)
[2019-06-02 16:57] LABS: Basophils # 0.1 K/mcL (0.0-0.2); Basophils % 0.2 %; Eosinophils # 0.1 K/mcL (0.0-0.6); Hematocrit 28.7 % (37.5-50.1); Lymphocytes # 22.1 K/mcL (0.6-4.6); Lymphocytes % 64.8 %; Mean Corpuscular HGB Conc 32.1 g/dL (31.6-35.5); Mean Corpuscular Volume 90.8 fL (83.0-100.0); Monocytes # 1.6 K/mcL (0.0-1.3); Monocytes % 4.7 %; Neutrophils # 9.9 K/mcL (1.6-8.9); Platelet Count 480 K/mcL (140-400); Red Cell Distribution Width 14.7 % (11.5-14.5); Segmented Neutrophils % 29.1 %
[2019-06-02 17:05] LABS: White Blood Count 34.1 K/mcL (4.3-11.1)
[2019-06-02 17:19] LABS: Alanine Aminotransferase 15 Units/L (7-52); Albumin/Globulin Ratio 0.9 (1.1-2.2); Alkaline Phosphatase 98 Units/L (34-104); Aspartate Amino Transferase 14 Units/L (13-39); BUN/Creatinine Ratio 18 (6-26); Bilirubin,Direct 0.2 mg/dL (0.0-0.2); Bilirubin,Indirect 0.1 mg/dL (0.0-1.2); Bilirubin,Total 0.3 mg/dL (0.3-1.0); Blood Urea Nitrogen 13 mg/dL (8-23); Carbon Dioxide 29 mEq/L (23-29); Chloride 95 mEq/L (98-107); Globulin 3.5 g/dL (2.4-3.5); Glucose 283 mg/dL (70-105); Osmolality,Calculated 286 (280-300); Platelet Estimate Normal (Normal); Potassium 4.3 mEq/L (3.5-5.1); Reactive Lymphocytes Present (Not Present); Smudge Cells Present (Not Present); Sodium 133 mEq/L (136-145); Total Protein 6.5 g/dL (6.4-8.9); eGFR For African Americans > 60 (> 60); eGFR For Non-African Americans > 60 (> 60)
[2019-06-02] MEDS ORDERED: Piperacillin/Tazobactam 3.375 GM in 0.9 % Sodium Chloride Mini Bag 100 ML IVPB ONE (17:49)
--- NOTE | 2019-06-02 18:17 | Internal Med History&Physical ---
Date of Encounter: 06/02/19 Time of Encounter: 18:17 Internal Medicine - H&P: HPI Chief complaint: fevers Admitted From: Home Plans for Post Hospital Care: Home History of present illness: Mr. Leon is a 74 year old male with past medical history of diabetes, nephrolithiasis, CVA, coronary artery disease, possible CLL came in due to complain of fevers. 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 Patient was reportedly being worked up for possible CLL. No family member available to take further history. Per ER documentation patient has been having fevers for several weeks and was treated with antibiotics however currently is not on any antibiotics. His been having dry cough and runny nose with associated shortness of breath without any chest pain. Reported some epigastric discomfort. Denies any urinary frequency or burning however has difficulty passing urine. Denies any diarrhea. Patient has not received any treatment for CLL has there were some labs that were pending sent by his oncologist. Patient was evaluated in the ER and was found to have fever of 101, leukocytosis and right upper lobe infiltrate. Unclear when was patient receiving the last antibiotic and which antibiotic. Patient had some hypoxia on room air in the ER and tachycardia. Lactate was normal and easy hemodynamically stable. Patient was seen in ER. He is alert and oriented 2 however is not able to give proper history. Above-mentioned history was corroborated from ER physician, year charts and previous charts. Unclear whether patient completely able to understand but agrees to have resuscitation at this point. Feels much better in terms of his breathing. Patient was given vancomycin and Zosyn in the ER and 1 L of normal saline. Past Med Surg Social Fam HX - Past Medical History Medical history: arthritis, coronary artery disease, CVA, diabetes, hypertensi on, myocardial infarction Psychiatric history: no psych history - Past Surgical History Surgical History: appendectomy Additional surgical history: aneurysm- brain surgery x 2, rt shoulder. Kidney Stone Removal - Social History Smoking Status: Current every day smoker Smokeless Tobacco Status: No Alcohol use: none Drug use: none Internal Medicine - H&P: Meds Tamsulosin HCl [Flomax] 0.4 mg PO DAILY #7 cap.er.24h 05/10/17 [Rx] Cholecalciferol (Vitamin D3) [Vitamin D3] 1,000 unit PO DAILY 05/11/17 [History] Clopidogrel [Plavix] 75 mg PO DAILY 05/11/17 [History] Metformin HCl [Glucophage] 1,000 mg PO BIDWM 05/11/17 [History] Metoprolol XL (24 HR) Succ [Toprol Xl] 12.5 mg PO BID 05/11/17 [History] Pantoprazole Sodium [Protonix] 40 mg PO DAILY 05/11/17 [History] glipiZIDE [Glipizide ER] 10 mg PO BIDWM 05/11/17 [History] Amitriptyline [Elavil] 50 mg PO BID 06/02/19 [History] OxyCODONE/APAP 10/325 [Percocet 10/325 MG] 1 each PO Q6HR PRN 06/02/19 [History] Allergy/AdvReac Type Severity Reaction Status Date / Time No Known Allergies Allergy Verified 05/11/17 08:04 All Systems PM: A 10-system review of systems was performed and is negative for pertinent findings except as documented above in the HPI. - Constitutional Vitals: Temp Pulse Resp BP Pulse Ox 101.1 F H 101 18 121/77 87 06/02/19 16:10 06/02/19 16:10 06/02/19 16:10 06/02/19 16:10 06/02/19 16:10 Exam: Constitutional: Vitals as noted. Conversant. No Apparent Distress. Eyes : Sclera white, conjunctiva clear, no lid lag, PEARLA. ENT : Grossly normal hearing. Moist mucus membranes. No JVD, no cervical lymphadenopathy. no thyromegaly or mass. Respiratory : Clear to auscultation bilaterally. No accessory muscle use, rales, rhonchi or wheezes Cardiovascular : RRR, +S1, +S2. no murmur, gallop, rubs. No chest wall tenderness GI/Abdominal : Soft, Non-tender, Non-distended, normal bowel sounds, soft, no peritoneal signs. no orgenomegaly or mass appreciated. no hernia. Musculoskeletal: no deformity noted. no edema or cyanosis. warm extremities, pulses palpable and symmetrical in UE/LE. no calf tenderness. Neurological: AO X2, CN II-XII grossly intact, grossly normal motor and sensory exam. Skin: No skin rash, lesions or ulcers noted. Pych: poor memory. Internal Med - H&P Results - Labs CBC & Chem 7: 06/02/19 16:34 06/02/19 16:34 Labs: Short CBC 06/02/19 Range/Units 16:34 WBC 34.1 H* (4.3-11.1) K/mcL Hgb 9.2 L (12.9-16.9) g/dL Hct 28.7 L (37.5-50.1) % Plt Count 480 H (140-400) K/mcL Neutrophils # 9.9 H (1.6-8.9) K/mcL BMP 06/02/19 16:34 Sodium 133 L Potassium 4.3 Chloride 95 L Carbon Dioxide 29 BUN 13 Creatinine 0.73 Glucose 283 H Calcium 8.0 L Liver Function 06/02/19 Range/Units 16:34 Total Bilirubin 0.3 (0.3-1.0) mg/dL Direct Bilirubin 0.2 (0.0-0.2) mg/dL AST 14 (13-39) Units/L ALT 15 (7-52) Units/L Alkaline Phosphatase 98 (34-104) Units/L Albumin 3.0 L (3.5-5.7) g/dL - Impressions ITS Impressions Chest X-Ray 06/02/19 16:37 IMPRESSION: Dense right upper lobe airspace consolidation with small right pleural effusion likely representing right upper lobar pneumonia. Recommend follow-up to resolution. D/ / Braden Hobbs MD / Braden Hobbs MD Interpreting Provider: Braden Hobbs MD - Assessment and Plan (1) Hospital-acquired pneumonia Current Visit: Yes Status: Acute Assessment and plan: Patient reportedly had been treated with IV antibiotics at [facility]. Unclear exact history. We will keep patient on broad-spectrum antibiotics with vancomycin and Zosyn. Blood cultures collected. Obtain sputum cultures if possible, MRSA screen and urine antigen (2) Leukocytosis Current Visit: Yes Status: Acute Assessment and plan: Patient was being worked up for possible CLL Likely related to CLL however possibly could be worsened due to pneumonia Oncology consulted. Awaiting final diagnosis of CLL Qualifiers: Leukocytosis type: unspecified Qualified Code(s): D72.829 - Elevated white blood cell count, unspecified (3) DVT prophylaxis Current Visit: No Status: Acute Assessment and plan: Keep patient on heparin subcutaneous (4) Diabetes mellitus Current Visit: No Status: Acute Assessment and plan: Accu-Cheks with sliding scale before meals at bedtime and diabetic diet Qualifiers: Diabetes mellitus type: type 2 Diabetes mellitus jail insulin use: without tank terminal gauger use Diabetes mellitus complication status: with other specified complication Qualified Code(s): E11.69 - Type 2 diabetes mellitus with other specified complication (5) Sepsis Current Visit: No Status: Acute Assessment and plan: Patient has sepsis criteria with tachycardia, leukocytosis, fevers and hypoxia Treatment as above for pneumonia as a possible source. Unclear organism. Qualifiers: Sepsis type: sepsis due to unspecified organism Severe sepsis acute organ dysfunction type: acute respiratory failure Acute respiratory failure type: with hypoxia Severe sepsis shock status: without septic shock Qualified Code(s): A41.9 - Sepsis, unspecified organism; R65.20 - Severe sepsis without septic shock; J96.01 - Acute respiratory failure with hypoxia - Time Spent With Patient Total time spent is greater than 50% in coordination of care (as documented) at patient's floor/unit and/or counseling patient:
[2019-06-02] MEDS ORDERED: 0.9 % Sodium Chloride 1,000 ML IVC SCH (18:45)
[2019-06-02 18:48] LABS: Bilirubin,Urine Negative (Negative); Blood,Urine Negative (Negative); Clarity,Urine Clear (Clear); Color,Urine Yellow (Yellow); Glucose,Urine (UA) >=1000 mg/dL (Normal); Ketones,Urine Negative (Negative); Leukocyte Esterase,Urine Negative (Negative); Nitrite,Urine Negative (Negative); PH,Urine 6.5 pH Units (5.0-8.0); Protein,Urine 100 mg/dL (Neg-Trace); Specific Gravity,Urine 1.028 (1.010-1.025); Urobilinogen,Urine Normal (Normal)
[2019-06-02 18:50] LABS: Bacteria,Urine None Seen per hpf (None-Few); Hyaline Casts,Urine None Seen per lpf (None-Few); Squamous Epithelial Cell,Urine Many per lpf (None-Few); WBC,Urine 0-3 per hpf (0-3)
[2019-06-02] MEDS: Metoprolol XL (24 HR) Succ 25 MG TAB.ER.24H PO SCH (20:42)
[2019-06-02] MEDS: Acetaminophen 325 MG TABLET PO PRN (22:11)
[2019-06-02] MEDS: *HR* Heparin 5,000 UNIT/ML VIAL SQ SCH (22:11)
[2019-06-03 00:14] LABS: Adenovirus Not Detected (Not Detect); Bordetella Pertussis Not Detected (Not Detect); Chlamydophila pneumoniae Not Detected (Not Detect); Coronavirus 229E Not Detected (Not Detect); Coronavirus HKU1 Not Detected (Not Detect); Coronavirus NL63 Not Detected (Not Detect); Coronavirus OC43 Not Detected (Not Detect); Human Metapneumovirus Not Detected (Not Detect); Human Rhinovirus/Enterovirus Not Detected (Not Detect); Influenza A Subtype 2009 H1 Not Detected (Not Detect); Influenza A Untypeable Not Detected (Not Detect); Influenza B Not Detected (Not Detect); Mycoplasma pneumoniae Not Detected (Not Detect); Parainfluenza Virus 1 Not Detected (Not Detect); Parainfluenza Virus 2 Not Detected (Not Detect); Parainfluenza Virus 3 Not Detected (Not Detect); Parainfluenza Virus 4 Not Detected (Not Detect); Respiratory Syncytial Virus Not Detected (Not Detect)
[2019-06-03] MEDS: Piperacillin/Tazobactam 3.375 GM in 0.9 % Sodium Chloride Mini Bag 100 ML IVPB SCH ×3 (01:18→16:37)
[2019-06-03 02:37] LABS: Basophils % 0.1 %; Eosinophils % 0.4 %; Hemoglobin 8.9 g/dL (12.9-16.9); Mean Platelet Volume 9.2 fL (9.4-12.4)
[2019-06-03 02:38] LABS: Eosinophils # 0.1 K/mcL (0.0-0.6); Hematocrit 27.7 % (37.5-50.1); Immature Granulocytes % 0.5 % (0-4); Lymphocytes # 25.4 K/mcL (0.6-4.6); Lymphocytes % 73.4 %; Mean Corpuscular HGB Conc 32.1 g/dL (31.6-35.5); Mean Corpuscular Hemoglobin 28.9 pg (28.0-33.3); Mean Corpuscular Volume 89.9 fL (83.0-100.0); Monocytes # 0.9 K/mcL (0.0-1.3); Monocytes % 2.7 %; Neutrophils # 7.9 K/mcL (1.6-8.9); Platelet Count 454 K/mcL (140-400); Red Blood Count 3.08 M/mcL (4.19-5.50); Red Cell Distribution Width 14.8 % (11.5-14.5); Segmented Neutrophils % 22.9 %
[2019-06-03 02:47] LABS: BUN/Creatinine Ratio 16 (6-26); Blood Urea Nitrogen 11 mg/dL (8-23); Calcium 7.8 mg/dL (8.6-10.3); Carbon Dioxide 28 mEq/L (23-29); Chloride 99 mEq/L (98-107); Glucose 215 mg/dL (70-105); Osmolality,Calculated 292 (280-300); Potassium 3.9 mEq/L (3.5-5.1); Sodium 138 mEq/L (136-145); eGFR For African Americans > 60 (> 60); eGFR For Non-African Americans > 60 (> 60)
[2019-06-03 02:55] LABS: White Blood Count 34.6 K/mcL (4.3-11.1)
[2019-06-03 03:50] LABS: Hypochromasia Present (Not Present); Platelet Estimate Increased (Normal); Reactive Lymphocytes Present (Not Present); Smudge Cells Present (Not Present)
[2019-06-03] MEDS: *HR* Heparin 5,000 UNIT/ML VIAL SQ SCH ×3 (05:47→20:45)
[2019-06-03] MEDS ORDERED: *HR* Dextrose 50 % in Water (Syg) 50 ML SYRINGE IVP PRN (08:11)
[2019-06-03] MEDS ORDERED: Dextrose Gel 15 GM/37.5 ML TUBE PO PRN ×2 (08:11)
[2019-06-03] MEDS ORDERED: D5% in Water 1,000 ML IVC PRN (08:11)
[2019-06-03] MEDS ORDERED: 0.9 % Sodium Chloride 250 ML ONE (08:51)
[2019-06-03] MEDS: Insulin LISPRO 300 UNITS/3 ML VIAL SQ SCH ×4 (09:43→20:45)
[2019-06-03] MEDS: Metoprolol XL (24 HR) Succ 25 MG TAB.ER.24H PO SCH ×2 (11:13→20:44)
[2019-06-03] MEDS ORDERED: Aminoglycoside Consult 1 EACH MC ONE (12:18)
--- NOTE | 2019-06-03 14:19 | Oncology Inp Consult Note ---
<Derek Mcmanus Jr - Last Filed: 06/03/19 16:47> Date of Encounter: 06/03/19 Time of Encounter: 14:11 Assessment and Plan (1) CLL (chronic lymphocytic leukemia) Status: Acute Assessment and plan: Patient with a probable diagnosis of CLL, but, only seen for the first time by Dr Kenney at [facility] yesterday beofre admission to the hospital. Lymphocytosis progressive since 2015 currently 20,000. Most likely he has CLL. He also has mild lymphadenopathy chest abdomen and pelvis.. He has significant B symptoms fever chills and weight loss. Poor appetite and deconditioning. Prior to discharge from [facility] yesterday, we did get lab work for peripheral flow cytometry and FISH panel with beta-2 microglobulin. This will take several days to receive results. He has significant B symptoms fever chills and weight loss. Poor appetite deconditioning. He was inpatient at [facility] around 05/23/2019.[facility] records requested yesterday at [facility]. Recommendations: 1. Treat for infectious process with current plan. 2. Lab results collected yesterday at the [facility] to try to diagnose CLL may not be resulted prior to discharge. You can discharge if medically stable. 3. If confirmed CLL, as an outpatient, he would most likely be started on IIbrutinib 420 mg by mouth daily 4. If we find another etiology for his fever chills, weight loss, and constitutional symptoms, then we may not have to start Ibrutinib right away. His treatment would be observation of blood counts as outpatient. 5. Consider PT/OT evaluation and discharge planning due to deconditioning. 5. He would need follow up with Dr Kenney at the [facility] 10 days- 2 weeks after discharge for blood test results and further work up. Dr Rojo assessed patient with me today - Data of Consult Patient: known to practice within the last 3 years Consult date: 06/03/19 Requesting Physician: Wes Avitia Primary Care Provider: Mickey Lizama, - Consult Narrative Reason for consult: CLL History of present illness: Mr Leon is a 74 year old male with history of lymphocytosis since 2015 with probability for new diagnosis of CLL. Seen by Dr Shania Kenney at [facility] on 06/02/19 for initial new consult. He was sent to [place] ER by oncologist for concerns of pneumonia. He was admitted for HCAP/Sepsis. Oncology History: Pateint with lengthy history of fever, chills, weight loss and occasional nausea, urinary incontinence and confusion when fever spikes, coughing up blood, He denies any chest pain, SOB, or vomiting/diarrhea. Patient works in [place]. He was hospitalized at [facility] around 05/23/19 after having profound weakness hyperglycemia. He had stroke workup which was negative. He has found to have lymphocytosis lymphocyte count 20,000. He had infectious disease consult because he had fever up to 103 and only temporarily controlled with medications. Uncontrolled diabetes and he is started on insulin during the hospitalization. On review of our labs he has asymptomatic lymphocytosis since 2014. Lymphocyte count ranged between 5-10,000. Mild anemia hemoglobin around 11. Platelet counts normal. + November cells He had CT head chest abdomen and pelvis at [facility] has adenopathy in the chest abdomen and pelvis largest was 3.2 cm. CBC showed hemoglobin 9.9 platelets 198,000, neutrophils 7600 and. Blood cultures negative. He was treated with vancomycin IV as an inpatient with no major improvement. Lymphocytes 19,000 on 05/24/2019 He continued to spike fever up to 103 every 4 hours or so. Deconditioned on a wheelchair. Significant weight loss. He needs a lot of assistance with ambulation. He was discharged from [place] 10 days ago with no official diagnosis of CLL. [facility] has not received medical records from [facility] as of 06/03/19. Past Med Surg Social Fam HX - Past Medical History Medical history: arthritis, coronary artery disease, CVA, diabetes, hypertension, myocardial infarction Additional medical history: CLL Psychiatric history: no psych history - Past Surgical History Surgical History: appendectomy Additional surgical history: aneurysm- brain surgery x 2, rt shoulder. Kidney Stone Removal - Social History Smoking Status: Current every day smoker Packs per day: 0.5 pack/day Smokeless Tobacco Status: No Alcohol use: none Drug use: none Medications and Allergies Tamsulosin HCl [Flomax] 0.4 mg PO DAILY #7 cap.er.24h 05/10/17 [Rx] Cholecalciferol (Vitamin D3) [Vitamin D3] 1,000 unit PO DAILY 05/11/17 [History] Clopidogrel [Plavix] 75 mg PO DAILY 05/11/17 [History] Metformin HCl [Glucophage] 1,000 mg PO BIDWM 05/11/17 [History] Metoprolol XL (24 HR) Succ [Toprol Xl] 12.5 mg PO BID 05/11/17 [History] Pantoprazole Sodium [Protonix] 40 mg PO DAILY 05/11/17 [History] glipiZIDE [Glipizide ER] 10 mg PO BIDWM 05/11/17 [History] Amitriptyline [Elavil] 50 mg PO BID 06/02/19 [History] OxyCODONE/APAP 10/325 [Percocet 10/325 MG] 1 each PO Q6HR PRN 06/02/19 [History] Allergy/AdvReac Type Severity Reaction Status Date / Time No Known Allergies Allergy Verified 05/11/17 08:04 Constitutional: Present: chills, fatigue, fever(s), night sweats, weight loss Oncology - Exam - Constitutional General appearance: cooperative, no acute distress - Head Head exam: Present: normal inspection, normocephalic - Eye Eye exam: Present: normal appearance, PERRL - ENT ENT exam: Present: mucous membranes moist - Neck Neck exam: Present: lymphadenopathy - Respiratory Respiratory exam: Present: decreased breath sounds, CTAB, wheezes - Cardiovascular Cardiovascular exam: Present: RRR - GI/Abdominal GI/Abdominal exam: Present: normal bowel sounds, soft - Extremities Exam Extremities exam: Present: full ROM, normal inspection - Neurological Exam Neurological exam: Present: alert, no focal deficits - Psychiatric Psychiatric exam: Present: flat affect, normal mood - Skin Skin exam: Present: dry, intact Oncology Inpatient Results Labs: Laboratory Last Values WBC 34.6 K/mcL (4.3-11.1) H* 06/03/19 01:42 RBC 3.08 M/mcL (4.19-5.50) L 06/03/19 01:42 Hgb 8.9 g/dL (12.9-16.9) L 06/03/19 01:42 Hct 27.7 % (37.5-50.1) L 06/03/19 01:42 MCV 89.9 fL (83.0-100.0) 06/03/19 01:42 MCH 28.9 pg (28.0-33.3) 06/03/19 01:42 MCHC 32.1 g/dL (31.6-35.5) 06/03/19 01:42 RDW 14.8 % (11.5-14.5) H 06/03/19 01:42 Plt Count 454 K/mcL (140-400) H 06/03/19 01:42 MPV 9.2 fL (9.4-12.4) L 06/03/19 01:42 Immature Gran % 0.5 % (0-4) 06/03/19 01:42 Seg Neutrophils % 22.9 % 06/03/19 01:42 Lymphocytes % 73.4 % 06/03/19 01:42 Monocytes % 2.7 % 06/03/19 01:42 Eosinophils % 0.4 % 06/03/19 01:42 Basophils % 0.1 % 06/03/19 01:42 Neutrophils # 7.9 K/mcL (1.6-8.9) 06/03/19 01:42 Lymphocytes # 25.4 K/mcL (0.6-4.6) H 06/03/19 01:42 Monocytes # 0.9 K/mcL (0.0-1.3) 06/03/19 01:42 Eosinophils # 0.1 K/mcL (0.0-0.6) 06/03/19 01:42 Basophils # 0.0 K/mcL (0.0-0.2) 06/03/19 01:42 Reactive Lymphocytes Present (Not Present) A 06/03/19 01:42 Smudge Cells Present (Not Present) A 06/03/19 01:42 Platelet Estimate Increased (Normal) H 06/03/19 01:42 Hypochromasia Present (Not Present) A 06/03/19 01:42 Sodium 138 mEq/L (136-145) 06/03/19 01:42 Potassium 3.9 mEq/L (3.5-5.1) 06/03/19 01:42 Chloride 99 mEq/L (98-107) 06/03/19 01:42 Carbon Dioxide 28 mEq/L (23-29) 06/03/19 01:42 BUN 11 mg/dL (8-23) 06/03/19 01:42 Creatinine 0.69 mg/dL (0.70-1.30) L 06/03/19 01:42 Est GFR ( Amer) > 60 (> 60) 06/03/19 01:42 Est GFR (Non-Af Amer) > 60 (> 60) 06/03/19 01:42 BUN/Creatinine Ratio 16 (6-26) 06/03/19 01:42 Glucose 215 mg/dL (70-105) H 06/03/19 01:42 POC Glucose 203 mg/dL (70-99) H 06/02/19 19:34 Calculated Osmolality 292 (280-300) 06/03/19 01:42 Lactic Acid 1.4 mmol/L (0.5-2.2) 06/02/19 16:34 Calcium 7.8 mg/dL (8.6-10.3) L 06/03/19 01:42 Total Bilirubin 0.3 mg/dL (0.3-1.0) 06/02/19 16:34 Direct Bilirubin 0.2 mg/dL (0.0-0.2) 06/02/19 16:34 Indirect Bilirubin 0.1 mg/dL (0.0-1.2) 06/02/19 16:34 AST 14 Units/L (13-39) 06/02/19 16:34 ALT 15 Units/L (7-52) 06/02/19 16:34 Alkaline Phosphatase 98 Units/L (34-104) 06/02/19 16:34 Serum Total Protein 6.5 g/dL (6.4-8.9) 06/02/19 16:34 Albumin 3.0 g/dL (3.5-5.7) L 06/02/19 16:34 Globulin 3.5 g/dL (2.4-3.5) 06/02/19 16:34 Albumin/Globulin Ratio 0.9 (1.1-2.2) L 06/02/19 16:34 Procalcitonin 0.53 ng/mL (0.00-0.15) H 06/03/19 01:42 Urine Color Yellow (Yellow) 06/02/19 18:35 Urine Clarity Clear (Clear) 06/02/19 18:35 Urine pH 6.5 pH Units (5.0-8.0) 06/02/19 18:35 Ur Specific Sandy 1.028 (1.010-1.025) H 06/02/19 18:35 Urine Protein 100 mg/dL (Neg-Trace) H 06/02/19 18:35 Urine Glucose (UA) >=1000 mg/dL (Normal) H 06/02/19 18:35 Urine Ketones Negative mg/dL (Negative) 06/02/19 18:35 Urine Blood Negative (Negative) 06/02/19 18:35 Urine Nitrite Negative (Negative) 06/02/19 18:35 Urine Bilirubin Negative (Negative) 06/02/19 18:35 Urine Urobilinogen Normal mg/dL (Normal) 06/02/19 18:35 Ur Leukocyte Esterase Negative (Negative) 06/02/19 18:35 Urine Microscopic RBC 5-15 per hpf (0-3) H 06/02/19 18:35 Urine Microscopic WBC 0-3 per hpf (0-3) 06/02/19 18:35 Ur Squamous Epith Cells Many per lpf (None-Few) H 06/02/19 18:35 Urine Bacteria None Seen per hpf (None-Few) 06/02/19 18:35 Hyaline Casts None Seen per lpf (None-Few) 18 18:35 Ur Culture Indicated? NO (NO) 06/02/19 18:35 Nasal Screen MRSA (PCR) NOT DETECTED (Not Detect) 06/02/19 20:40 Chlamy pneumoniae PCR Not Detected (Not Detect) 06/02/19 18:35 Adenovirus (PCR) Not Detected (Not Detect) 06/02/19 18:35 B. pertussis DNA (PCR) Not Detected (Not Detect) 06/02/19 18:35 B.parapertussis DNA PCR Not Detected (Not Detect) 06/02/19 18:35 Coronavirus OC43 (PCR) Not Detected (Not Detect) 06/02/19 18:35 Coronavirus HKU1 (PCR) Not Detected (Not Detect) 06/02/19 18:35 Coronavirus 229E (PCR) Not Detected (Not Detect) 06/02/19 18:35 Coronavirus NL63 (PCR) Not Detected (Not Detect) 06/02/19 18:35 Human Metapneumovir PCR Not Detected (Not Detect) 06/02/19 18:35 Influenza A (H1) PCR Not Detected (Not Detect) 06/02/19 18:35 Influ A (H1N1/09) PCR Not Detected (Not Detect) 06/02/19 18:35 Influenza A (H3) PCR Not Detected (Not Detect) 06/02/19 18:35 Influenza A Untype (PCR) Not Detected (Not Detect) 06/02/19 18:35 Influenza Type B (PCR) Not Detected (Not Detect) 06/02/19 18:35 M.pneumoniae DNA (PCR) Not Detected (Not Detect) 06/02/19 18:35 Parainfluenza 1 (PCR) Not Detected (Not Detect) 06/02/19 18:35 Parainfluenza 2 (PCR) Not Detected (Not Detect) 06/02/19 18:35 Parainfluenza 3 (PCR) Not Detected (Not Detect) 06/02/19 18:35 Parainfluenza 4 (PCR) Not Detected (Not Detect) 06/02/19 18:35 RSV (PCR) Not Detected (Not Detect) 06/02/19 18:35 Entero/Rhino (PCR) Not Detected (Not Detect) 06/02/19 18:35 Consult Discharge Plan - Plan Referrals: Juventino Lizama DO [Primary Care Provider] - <Michael Rojo - Last Filed: 06/03/19 16:56> Date of Encounter: 06/03/19 - Data of Consult Requesting Physician: Wes Avitia Primary Care Provider: Mickey Lizama DO Inpatient Charges Provider: Dr. Enoc Rojo Consult - Inpatient Medicare Only: [id number] - Attending Attestation I examined this patient and my medical decision-making was reviewed with the Advanced Practice Nurse. I agree with the documented findings, disposition and treatment plan as described except to the extent set forth below. Mr. Leon has been admitted with right upper lobe pneumonia in the setting of worsening lymphocytosis. Clinically this is consistent with underlying CLL. As he was recently hospitalized, possibly acquired pneumonia treatment has been instituted. Fever curve appears to be improving with antibiotics. Dr. Alford has sent for flow cytometry as well as FISH through further eval his lymphocytosis as CLL is currently suspected. Recommend continued treatment of his pneumonia. There is no need for urgent intervention for his lymphocytosis at this time. On examination, he is a pleasant man who appears younger than his stated age. Lungs are clear to auscultation bilaterally. Diminished right upper lobe posteriorly. Heart regular rate and rhythm. Abdomen is soft nontender nondistended. I do not appreciate lymphadenopathy.
--- NOTE | 2019-06-03 14:46 | Internal Med Progress Note ---
Hospitalist Progress Note - Encounter Date of Encounter: 06/03/19 Time of Encounter: 10:20 - Subjective Interval History: No major events overnight. Patient was seen this a.m. He denied fever, chills or night sweats. He has no nausea, vomiting or abdominal pain. Patient denied chest pain, shortness of breath or palpitation. - Exam Vitals: Temp Pulse Resp BP Pulse Ox 99.3 F 80 18 130/76 96 06/03/19 14:14 06/03/19 14:14 06/03/19 14:14 06/03/19 14:14 06/03/19 14:14 Exam: Constitutional: Vitals as noted. Conversant. No Apparent Distress. Eyes : Sclera white, conjunctiva clear, no lid lag, PEARLA. ENT : Grossly normal hearing. Moist mucus membranes. No JVD, no cervical lymphadenopathy. no thyromegaly or mass. Respiratory : rhonchi in the right lung, Cardiovascular : RRR, +S1, +S2. no murmur, gallop, rubs. No chest wall tenderness GI/Abdominal : Soft, Non-tender, Non-distended, normal bowel sounds, soft, no peritoneal signs. no orgenomegaly or mass appreciated. no hernia. Musculoskeletal: no deformity noted. no edema or cyanosis. warm extremities, pulses palpable and symmetrical in UE/LE. no calf tenderness. Neurological: AO X2, CN II-XII grossly intact, grossly normal motor and sensory exam. Skin: No skin rash, lesions or ulcers noted. Pych: poor memory. - Assessment and Plan (1) Hospital-acquired pneumonia Current Visit: Yes Status: Acute (2) Leukocytosis Current Visit: Yes Status: Acute (3) DVT prophylaxis Current Visit: No Status: Acute (4) Diabetes mellitus Current Visit: Yes Status: Chronic (5) Sepsis Current Visit: Yes Status: Acute - Summary of Assessment and Plan Summary of Assessment and Plan: 74-year-old male with history of brain aneurysm with mild memory impairment, questionable CLL, HTN, type II DM who came to the house due to fevers. History is very limited due to his memory deficiency. HAP: On Zoysn day 2, CXR with RUL consolidation. He is febrile this morning, hemodynamically stable, and requiring 3 L. Wean O2. MRSA swab and respiratory viral panel is negative. Blood cultures and sputum cultures are pending. Sepsis: Meet 3/4 criteria. Likely from pneumonia. Management as per above. Continue IVF. Questionable CLL: Oncology is on board. and check CBC tomorrow HTN: Controlled, continue home medication Type II DM: continue LSSI. hold oral medications. DVT ppx' Heparin gtt I attempted to call his to obtain further Hx but wasn't able to. will try again - Time Spent with Patient Total time spent is greater than 50% in coordination of care (as documented) at patient's floor/unit and/or counseling patient: Plan of Care Discussed with: patient Internal Medicine: Result - Labs CBC & Chem 7: 06/03/19 01:42 06/03/19 01:42 Labs: Short CBC 06/02/19 06/03/19 Range/Units 16:34 01:42 WBC 34.1 H* 34.6 H* (4.3-11.1) K/mcL Hgb 9.2 L 8.9 L (12.9-16.9) g/dL Hct 28.7 L 27.7 L (37.5-50.1) % Plt Count 480 H 454 H (140-400) K/mcL Neutrophils # 9.9 H 7.9 (1.6-8.9) K/mcL BMP 06/02/19 06/03/19 16:34 01:42 Sodium 133 L 138 Potassium 4.3 3.9 Chloride 95 L 99 Carbon Dioxide 29 28 BUN 13 11 Creatinine 0.73 0.69 L Glucose 283 H 215 H Calcium 8.0 L 7.8 L Liver Function 06/02/19 Range/Units 16:34 Total Bilirubin 0.3 (0.3-1.0) mg/dL Direct Bilirubin 0.2 (0.0-0.2) mg/dL AST 14 (13-39) Units/L ALT 15 (7-52) Units/L Alkaline Phosphatase 98 (34-104) Units/L Albumin 3.0 L (3.5-5.7) g/dL Urine 06/02/19 Range/Units 18:35 Urine Color Yellow (Yellow) Urine Clarity Clear (Clear) Urine pH 6.5 (5.0-8.0) pH Units Ur Specific Simpson 1.028 H (1.010-1.025) Urine Protein 100 H (Neg-Trace) mg/dL Urine Glucose (UA) >=1000 H (Normal) mg/dL - Impressions Impressions Chest X-Ray 06/02/19 16:37 IMPRESSION: Dense right upper lobe airspace consolidation with small right pleural effusion likely representing right upper lobar pneumonia. Recommend follow-up to resolution. D/ / Braden Hobbs MD / Braden Hobbs MD Interpreting Provider: Braden Hobbs MD Consult Discharge Plan - Plan Referrals: Juventino Lizama DO [Primary Care Provider] - (2) Leukocytosis Qualifiers: Leukocytosis type: lymphocytosis Qualified Code(s): D72.820 - Lymphocytosis (symptomatic) (4) Diabetes mellitus Qualifiers: Diabetes mellitus type: type 2 Diabetes mellitus bed bug exterminator insulin use: without half-way use Diabetes mellitus complication status: with other specified complication Qualified Code(s): E11.69 - Type 2 diabetes mellitus with other specified complication (5) Sepsis Qualifiers: Sepsis type: sepsis due to unspecified organism Severe sepsis acute organ dysfunction type: acute respiratory failure Acute respiratory failure type: with hypoxia Severe sepsis shock status: without septic shock Qualified Code(s): A41.9 - Sepsis, unspecified organism; R65.20 - Severe sepsis without septic shock; J96.01 - Acute respiratory failure with hypoxia
[2019-06-03] MEDS: 0.9 % Sodium Chloride 1,000 ML IVC SCH (16:37)
[2019-06-03] MEDS: Acetaminophen 325 MG TABLET PO PRN ×2 (16:45→20:44)
[2019-06-04] MEDS: Piperacillin/Tazobactam 3.375 GM in 0.9 % Sodium Chloride Mini Bag 100 ML IVPB SCH ×4 (01:15→23:10)
[2019-06-04 03:07] LABS: Hematocrit 29.9 % (37.5-50.1); Hemoglobin 9.3 g/dL (12.9-16.9); Mean Corpuscular HGB Conc 31.1 g/dL (31.6-35.5); Mean Corpuscular Hemoglobin 29.2 pg (28.0-33.3); Mean Corpuscular Volume 93.7 fL (83.0-100.0); Mean Platelet Volume 9.1 fL (9.4-12.4); Platelet Count 455 K/mcL (140-400); Red Blood Count 3.19 M/mcL (4.19-5.50); Red Cell Distribution Width 14.6 % (11.5-14.5); White Blood Count 26.3 K/mcL (4.3-11.1)
[2019-06-04] MEDS: 0.9 % Sodium Chloride 1,000 ML IVC SCH (03:24)
[2019-06-04 03:25] LABS: BUN/Creatinine Ratio 15 (6-26); Blood Urea Nitrogen 11 mg/dL (8-23); Calcium 8.4 mg/dL (8.6-10.3); Carbon Dioxide 28 mEq/L (23-29); Chloride 101 mEq/L (98-107); Glucose 234 mg/dL (70-105); Osmolality,Calculated 295 (280-300); Potassium 4.2 mEq/L (3.5-5.1); Sodium 139 mEq/L (136-145); eGFR For African Americans > 60 (> 60); eGFR For Non-African Americans > 60 (> 60)
[2019-06-04] MEDS ORDERED: Ibuprofen 800 MG TABLET PO ONE (03:35)
[2019-06-04] MEDS: *HR* Heparin 5,000 UNIT/ML VIAL SQ SCH ×3 (04:21→20:37)
[2019-06-04] MEDS: Metoprolol XL (24 HR) Succ 25 MG TAB.ER.24H PO SCH ×2 (08:11→20:37)
[2019-06-04] MEDS: Insulin LISPRO 300 UNITS/3 ML VIAL SQ SCH ×4 (08:12→20:38)
--- NOTE | 2019-06-04 10:32 | Internal Med Progress Note ---
Hospitalist Progress Note - Encounter Date of Encounter: 06/04/19 Time of Encounter: 09:20 - Subjective Interval History: No major events overnight. Patient was seen this a.m. He denied fever, chills or night sweats. He has no nausea, vomiting or abdominal pain. Patient denied chest pain, shortness of breath or palpitation. - Exam Vitals: Temp Pulse Resp BP Pulse Ox 97.9 F 76 18 168/83 92 06/04/19 07:40 06/04/19 07:40 06/04/19 07:40 06/04/19 07:40 06/04/19 07:40 Exam: Constitutional: No Apparent Distress. Eyes : Sclera white, conjunctiva clear, no lid lag, PEARLA. ENT : Grossly normal hearing. Moist mucus membranes. No JVD, no cervical lymphadenopathy. no thyromegaly or mass. Respiratory : Clear to auscultation Cardiovascular : RRR, +S1, +S2. no murmur, gallop, rubs. No chest wall tenderness GI/Abdominal : Soft, Non-tender, Non-distended, normal bowel sounds, soft, no peritoneal signs. no orgenomegaly or mass appreciated. no hernia. Musculoskeletal: no deformity noted. no edema or cyanosis. warm extremities, pulses palpable and symmetrical in UE/LE. no calf tenderness. Neurological: AO X3, CN II-XII grossly intact, grossly normal motor and sensory exam. Skin: No skin rash, lesions or ulcers noted. - Assessment and Plan (1) Hospital-acquired pneumonia Current Visit: Yes Status: Acute (2) Leukocytosis Current Visit: Yes Status: Acute (3) DVT prophylaxis Current Visit: Yes Status: Acute (4) Diabetes mellitus Current Visit: Yes Status: Chronic (5) Sepsis Current Visit: Yes Status: Resolved - Summary of Assessment and Plan Summary of Assessment and Plan: 74-year-old male with history of brain aneurysm with mild memory impairment, questionable CLL, HTN, type II DM who came to the house due to fevers. History is very limited due to his memory deficiency. HAP: On Zoysn day 3, CXR with RUL consolidation. He is afebrile , hemodynamically stable,On RA, leukocytosis improved. MRSA swab and respiratory viral panel is negative. Blood cultures and sputum cultures are pending. Sepsis: Meet 3/4 criteria. Likely from pneumonia. Management as per above. Continue IVF. Questionable CLL: Oncology is on board. and check CBC tomorrow HTN: Controlled, continue home medication Type II DM: continue LSSI, will add 10u of levemir. Check A1c. hold oral medications. DVT ppx' Heparin sc - Time Spent with Patient Total time spent is greater than 50% in coordination of care (as documented) at patient's floor/unit and/or counseling patient: Internal Medicine: Result - Labs CBC & Chem 7: 06/04/19 02:46 06/04/19 02:46 Labs: Short CBC 06/04/19 Range/Units 02:46 WBC 26.3 H (4.3-11.1) K/mcL Hgb 9.3 L (12.9-16.9) g/dL Hct 29.9 L (37.5-50.1) % Plt Count 455 H (140-400) K/mcL BMP 06/04/19 02:46 Sodium 139 Potassium 4.2 Chloride 101 Carbon Dioxide 28 BUN 11 Creatinine 0.73 Glucose 234 H Calcium 8.4 L Consult Discharge Plan - Plan Referrals: Juventino Lizama DO [Primary Care Provider] - __ (2) Leukocytosis Qualifiers: Leukocytosis type: lymphocytosis Qualified Code(s): D72.820 - Lymphocytosis (symptomatic) (4) Diabetes mellitus Qualifiers: Diabetes mellitus type: type 2 Diabetes mellitus rodent exterminator insulin use: without rodent exterminator use Diabetes mellitus complication status: with other specified complication Qualified Code(s): E11.69 - Type 2 diabetes mellitus with other specified complication (5) Sepsis Qualifiers: Sepsis type: sepsis due to unspecified organism Severe sepsis acute organ dysfunction type: acute respiratory failure Acute respiratory failure type: with hypoxia Severe sepsis shock status: without septic shock Qualified Code(s): A41.9 - Sepsis, unspecified organism; R65.20 - Severe sepsis without septic shock; J96.01 - Acute respiratory failure with hypoxia
[2019-06-04 11:18] LABS: Estimated Average Glucose 263 mg/dl
[2019-06-04] MEDS: Ibuprofen 600 MG TABLET PO PRN ×2 (11:24→22:40)
[2019-06-04] MEDS: Acetaminophen 325 MG TABLET PO PRN (15:25)
[2019-06-04] MEDS ORDERED: Insulin DETEMIR 100 UNIT/ML X5UNITS SQ SCH (21:00)
[2019-06-05 04:17] LABS: Hematocrit 29.8 % (37.5-50.1); Hemoglobin 9.3 g/dL (12.9-16.9); Mean Corpuscular HGB Conc 31.2 g/dL (31.6-35.5); Mean Corpuscular Hemoglobin 29.2 pg (28.0-33.3); Mean Corpuscular Volume 93.4 fL (83.0-100.0); Mean Platelet Volume 9.3 fL (9.4-12.4); Platelet Count 467 K/mcL (140-400); Red Blood Count 3.19 M/mcL (4.19-5.50); Red Cell Distribution Width 14.7 % (11.5-14.5); White Blood Count 22.6 K/mcL (4.3-11.1)
[2019-06-05 04:36] LABS: BUN/Creatinine Ratio 19 (6-26); Blood Urea Nitrogen 16 mg/dL (8-23); Calcium 8.4 mg/dL (8.6-10.3); Carbon Dioxide 30 mEq/L (23-29); Chloride 98 mEq/L (98-107); Glucose 440 mg/dL (70-105); Osmolality,Calculated 302 (280-300); Potassium 4.4 mEq/L (3.5-5.1); Sodium 136 mEq/L (136-145); eGFR For African Americans > 60 (> 60); eGFR For Non-African Americans > 60 (> 60)
[2019-06-05] MEDS: *HR* Heparin 5,000 UNIT/ML VIAL SQ SCH ×2 (05:18→11:22)
[2019-06-05 07:10] VITALS: BP 159/76
[2019-06-05] MEDS: Metoprolol XL (24 HR) Succ 25 MG TAB.ER.24H PO SCH (08:10)
[2019-06-05] MEDS: Insulin LISPRO 300 UNITS/3 ML VIAL SQ SCH ×4 (08:10→11:31)
[2019-06-05] MEDS: Piperacillin/Tazobactam 3.375 GM in 0.9 % Sodium Chloride Mini Bag 100 ML IVPB SCH (08:11)
--- NOTE | 2019-06-05 10:26 | Discharge Summary ---
- NOTES TO OUTPATIENT PROVIDER Notes to Outpatient Provider: Patient was admitted for hospital acquired pneumonia with leukocytosis and sepsis. He was treated with IV antibiotics and remained off oxygen at discharge. He also had leukocytosis which improved but still elevated likely 2/2 his CLL. He was noted to have hyperglycemia with A1c of 10.8. 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 Orders not resulted at time of discharge: Pending orders 06/02/19 16:34 Culture,Blood [BC] Stat 06/02/19 20:40 Culture,Sputum with Gram Stain [RM] Routine Date of Encounter: 06/05/19 Time of Encounter: 08:30 - Discharge Diagnosis (1) Hospital-acquired pneumonia Priority: Primary Status: Acute (2) Leukocytosis Priority: Secondary Status: Acute Qualifiers: Leukocytosis type: lymphocytosis Qualified Code(s): D72.820 - Lymphocytosis (symptomatic) (3) DVT prophylaxis Priority: Secondary Status: Acute (4) Diabetes mellitus Priority: Secondary Status: Chronic Qualifiers: Diabetes mellitus type: type 2 Diabetes mellitus usp insulin use: without intermediate frame tender use Diabetes mellitus complication status: with other specified complication Qualified Code(s): E11.69 - Type 2 diabetes mellitus with other specified complication (5) Sepsis Priority: Secondary Status: Resolved Qualifiers: Sepsis type: sepsis due to unspecified organism Severe sepsis acute organ dysfunction type: acute respiratory failure Acute respiratory failure type: with hypoxia Severe sepsis shock status: without septic shock Qualified Code(s): A41.9 - Sepsis, unspecified organism; R65.20 - Severe sepsis without septic shock; J96.01 - Acute respiratory failure with hypoxia Hospital course: Mr. Leon is a 74 year old male with history of CLL, type II DM, HTN, subarachnoid hemorrhage and brain aneurysm who came into the hospital after recent discharge from [facility] due to fevers. He was found to have right upper lobe pneumonia. He was treated for sepsis and hypoxic respiratory failure with IV Zosyn. He was also followed by oncology for his CLL. Patient improved significantly and his oxygen requirement went down to 0 before discharge. His leukocytosis improved. He was also noted to have elevated blood sugar with A1c of 10.8. He was started on levemir and he had an appointment with endocrinology in 2 weeks. Patient declined home health service recommended by PT. Today, he is hemodynamically stable, clinically stable. He will be discharged home in stable condition. Discharge discussed with: patient - Time Spent with Patient Total time spent providing and/or coordinating discharge services: 42 minutes - Discharge Medications Prescriptions: New Alcohol Antiseptic Pads [Alcohol Pads] 1 each TP DAILY #1 pack Insulin Glargine,Hum.rec.anlog [Basaglar Kwikpen U-100] 15 unit SQ HS #1 pack Pen Needle, Diabetic [Insulin Pen Needle] 1 each MC DAILY #1 pack Lancets [Onetouch Delica] 1 each MC DAILY #1 pack Blood Sugar Diagnostic [Test Strips] 1 each MC DAILY #1 pack levoFLOXacin [Levaquin] 750 mg PO DAILY #5 tablet Continued Tamsulosin HCl [Flomax] 0.4 mg PO DAILY #7 cap.er.24h glipiZIDE [Glipizide ER] 10 mg PO BIDWM Clopidogrel [Plavix] 75 mg PO DAILY Metformin HCl [Glucophage] 1,000 mg PO BIDWM Cholecalciferol (Vitamin D3) [Vitamin D3] 1,000 unit PO DAILY Pantoprazole Sodium [Protonix] 40 mg PO DAILY Metoprolol XL (24 HR) Succ [Toprol Xl] 12.5 mg PO BID Amitriptyline [Elavil] 50 mg PO BID OxyCODONE/APAP 10/325 [Percocet 10/325 MG] 1 each PO Q6HR PRN PRN Reason: Pain Home Medications: Tamsulosin HCl [Flomax] 0.4 mg PO DAILY #7 cap.er.24h 05/10/17 [Rx] Cholecalciferol (Vitamin D3) [Vitamin D3] 1,000 unit PO DAILY 05/11/17 [History] Clopidogrel [Plavix] 75 mg PO DAILY 05/11/17 [History] Metformin HCl [Glucophage] 1,000 mg PO BIDWM 05/11/17 [History] Metoprolol XL (24 HR) Succ [Toprol Xl] 12.5 mg PO BID 05/11/17 [History] Pantoprazole Sodium [Protonix] 40 mg PO DAILY 05/11/17 [History] glipiZIDE [Glipizide ER] 10 mg PO BIDWM 05/11/17 [History] Amitriptyline [Elavil] 50 mg PO BID 06/02/19 [History] OxyCODONE/APAP 10/325 [Percocet 10/325 MG] 1 each PO Q6HR PRN 06/02/19 [History] Alcohol Antiseptic Pads [Alcohol Pads] 1 each TP DAILY #1 pack 06/04/19 [Rx] Blood Sugar Diagnostic [Test Strips] 1 each MC DAILY #1 pack 06/04/19 [Rx] Insulin Glargine,Hum.rec.anlog [Basaglar Kwikpen U-100] 15 unit SQ HS #1 pack 06/04/19 [Rx] Lancets [Onetouch Delica] 1 each MC DAILY #1 pack 06/04/19 [Rx] Pen Needle, Diabetic [Insulin Pen Needle] 1 each MC DAILY #1 pack 06/04/19 [Rx] levoFLOXacin [Levaquin] 750 mg PO DAILY #5 tablet 06/05/19 [Rx] Allergies/Adverse Reactions: Allergy/AdvReac Type Severity Reaction Status Date / Time No Known Allergies Allergy Verified 05/11/17 08:04 Date of admission: 06/02/19 18:29 Primary care physician: Mickey Lizama DO Consults: 06/02/19 17:54 Consult to Oncology [CONS] Stat Consulting Provider: [facility] Reason for Consult: cll Time Notified: 17:54 Call Completed: Yes 06/02/19 20:28 Consult to Nutrition [CONS] Routine Comment: Consulting Provider: NUTRITION Reason for Dietary Consult: MST Score 06/03/19 18:06 Consult to Physical Therapy [CONS] Routine Comment: Evaluate, develop and implement POC Reason for Consult: evaluate the need for skilled placement Does patient have active BEDREST order?: No Is patient medically & hemodynamically stable?: Yes - Constitutional Vitals: Temp Pulse Resp BP Pulse Ox 97.7 F 67 18 159/76 94 06/05/19 07:09 06/05/19 07:09 06/05/19 07:09 06/05/19 07:09 06/05/19 07:09 Exam: Constitutional: No Apparent Distress. Eyes : Sclera white, conjunctiva clear, no lid lag, PEARLA. ENT : Grossly normal hearing. Moist mucus membranes. No JVD, no cervical lymphadenopathy. no thyromegaly or mass. Respiratory : Clear to auscultation Cardiovascular : RRR, +S1, +S2. no murmur, gallop, rubs. No chest wall tenderness GI/Abdominal : Soft, Non-tender, Non-distended, normal bowel sounds, soft, no peritoneal signs. no orgenomegaly or mass appreciated. no hernia. Musculoskeletal: no deformity noted. no edema or cyanosis. warm extremities, pulses palpable and symmetrical in UE/LE. no calf tenderness. Neurological: AO X3, CN II-XII grossly intact, grossly normal motor and sensory exam. Skin: No skin rash, lesions or ulcers noted. - Patient Status Disposition: Home, Self-Care Condition: Good Functional capacity at discharge: independent ambulation Overall status at discharge: patient is back to baseline - Discharge Instructions Follow Up With: Juventino Lizama DO [Primary Care Provider] - 06/10/19 2:15 pm (Please follow up as schedule..) Forms: ED Satisfaction Letter, Work/School Release - Diet and Activity Activity: increase activity as tolerated Diet: diabetic diet
[2019-06-05] MEDS: Ibuprofen 600 MG TABLET PO PRN (11:30)
== END 2019-06-05 12:19 | disposition home or self-care (01) | DRG 871 ==
LOC: EMEROOARM 16:04 → 2ANU 18:29 → SUATTDRO 18:29 → 2ANU 18:45
PROVIDERS: ADMIT Internal Medicine; ATTEND Internal Medicine